=== PATIENT | female | born 1950 | race Caucasian/White ===

== ENCOUNTER 2016-11-07 19:50 | Observation (INO) | payer MEDICARE, OTHER ==
[2016-11-07] MEDS ORDERED: MORPHINE SULFATE 4 MG/ML SYRINGE IV ONE (21:13)
[2016-11-07] MEDS ORDERED: ONDANSETRON 4 MG/2 ML VIAL IVP STA (21:13)
[2016-11-07] MEDS ORDERED: SODIUM CHLORIDE 0.9% 1,000 ML IV ONE (21:13)
--- NOTE | 2016-11-07 21:23 | ED ---
Abdominal Pain HPI - General Chief Complaint: Abdominal Pain Stated Complaint: left flank & back pain/vomiting Time Seen by Provider: 11/07/16 20:58 Source: patient, family Mode of arrival: ambulatory Limitations: no limitations - History of Present Illness Initial Comments: Patient is a 65-year-old female presents to the emergency department for evaluation of nausea, nonbloody nonbilious emesis, epigastric abdominal pain. To the left flank. Patient reports that she woke up this morning and she felt somewhat nauseated and had vague abdominal pain, she attended a democrat and throughout the afternoon developed worsening epigastric abdominal pain radiating to the left side of the abdomen and the left flank. She reports she had multiple episodes of nonbloody nonbilious emesis. She reports that the vomiting has ceased since about 5 PM. She took 2 Motrin which did nothing to improve her pain so she decided to come to the ED for further evaluation. Patient states that her last colonoscopy was in 2008 and she was advised that it was normal and that she needed to follow-up in 10 years. Patient states that she has a history of irritable bowel and initially thought she was just having a flair of her IBS, however symptoms persisted and she became concerned that it was something more serious. Patient also reports that she has a known kidney stone, though she is not sure which side and states that it has never caused her pain before. She does report dysuria and urinary frequency last week, however those symptoms improved without intervention. - Related Data Home Medications Medication Instructions Recorded Confirmed Levothyroxine Sodium [Synthroid] 75 mcg PO DAILY 02/10/16 11/07/16 Allergies Allergy/AdvReac Type Severity Reaction Status Date / Time clarithromycin [From Biaxin] Allergy Unknown Nausea, Verified 11/07/16 22:27 Abdominal pain hydromorphone [From Dilaudid] Allergy Unknown Nausea, Verified 11/07/16 22:27 Abdominal pain adhesive tape AdvReac Unknown Skin Tears. Verified 11/07/16 22:27 Review of Systems ROS Statement: Those systems with pertinent positive or pertinent negative responses have been documented in the HPI. ROS Other: All systems not noted in ROS Statement are negative. Constitutional: Reports: chills. Denies: fever Eyes: Denies: vision change ENT: Denies: throat pain Respiratory: Denies: cough, dyspnea Cardiovascular: Denies: chest pain, palpitations Endocrine: Denies: fatigue Gastrointestinal: Reports: abdominal pain, nausea, vomiting. Denies: diarrhea, constipation Genitourinary: Reports: dysuria. Denies: hematuria Musculoskeletal: Reports: back pain. Denies: arthralgia Skin: Denies: rash, lesions Neurological: Denies: headache, weakness Psychiatric: Denies: anxiety, depression Hematological/Lymphatic: Denies: easy bleeding, easy bruising Past Medical History Past Medical History: Asthma, Cancer, Osteoarthritis (OA), Sleep Apnea/CPAP/ BIPAP, Thyroid Disorder Additional Past Medical History / Comment(s): STRESS INDUCED ASTHMA, C-PAP-DOES NOT USE, LOW THYROID, LEFT BREAST CANCER (LUMPECTOMY,CHEMO & RADIATION 1997), RIGHT BREAST CANCER (2006 WITH DOUBLE MASTECTOMY), HAD MULTIPLE BREAST SURGERIES WITH COMPLICATIONS WITH HYPERBARIC OXYGEN CHAMBER FOR BREAST WOUND THAT BURST HER EAR DRUMS, HX OF BROKEN LEFT SHOULDER & CLAVICLE, HAS SHOULDER PAIN., BACK PAIN. , IRREGULAR BOWEL MOVEMENTS. History of Any Multi-Drug Resistant Organisms: None Reported Past Surgical History: Bladder Surgery, Breast Surgery, Cholecystectomy, Heart Catheterization, Hernia Repair, Hysterectomy Additional Past Surgical History / Comment(s): HERNIA REPAIR (2008,2011) LEFT OVARY & APPY(1982), TUBAL LIGATION (1988), PARTIAL HYST & BLADDER SUSPENSION ( 2002), LEFT BREAST LUMP (1997), CARDIAC CATH (2004), DOUBLE MASTECTOMY(2006), LATISSIMUS FLAP LEFT BREAST , DEHYDROGENATION OPERATOR HEAD REMOVED AND REINSERTED AND REMOVED AGAIN. , DEBRIDMENT LEFT BREAST W/WOUND VAC (01/2008), EAR TUBES (2008) ADN EAR TUBE REMOVED, CLOSURE OF BREAST WOUND AND REMOVAL OF 2 SEROMAS (APR 2008). Past Anesthesia/Blood Transfusion Reactions: Postoperative Nausea & Vomiting ( PONV) Past Psychological History: No Psychological Hx Reported Smoking Status: Former smoker Past Alcohol Use History: None Reported Past Drug Use History: None Reported - Past Family History Mother Family Medical History: No Reported History General Exam Limitations: no limitations General appearance: alert, in no apparent distress Head exam: Present: atraumatic, normocephalic, normal inspection Eye exam: Present: normal appearance, PERRL ENT exam: Present: mucous membranes moist Neck exam: Present: normal inspection Respiratory exam: Present: normal lung sounds bilaterally. Absent: respiratory distress, wheezes, rales, rhonchi, stridor Cardiovascular Exam: Present: regular rate, normal rhythm, normal heart sounds. Absent: systolic murmur, diastolic murmur, rubs, gallop, clicks GI/Abdominal exam: Present: soft, tenderness (Tenderness in epigastrum), normal bowel sounds. Absent: guarding, rebound, rigid Rectal exam: Present: deferred Extremities exam: Present: normal inspection, full ROM, normal capillary refill. Absent: tenderness, pedal edema, joint swelling, calf tenderness Back exam: Present: other (Well-healed scar on the left flank secondary to latissimus dorsi harvesting for reconstructive breast surgery). Absent: CVA tenderness (R), CVA tenderness (L), paraspinal tenderness Neurological exam: Present: alert, oriented X3, CN II-XII intact Psychiatric exam: Present: normal affect, normal mood Skin exam: Present: warm, dry, intact, normal color. Absent: rash Course Vital Signs 11/07/16 11/07/16 11/07/16 20:05 21:50 23:00 Temperature 97.3 F L Pulse Rate 58 L 87 63 Respiratory 18 16 18 Rate Blood Pressure 220/99 132/74 131/67 O2 Sat by Pulse 96 98 Oximetry Medical Decision Making - Medical Decision Making Patient was seen and evaluated, vital signs were reviewed History is obtained from the patient and her daughter at bedside Considering the patient is having left sided abdominal and flank pain is a 65- year-old female, will obtain a full abdominal workup as well as workup for cardiac cause of the discomfort Morphine ordered for pain management Urinalysis reveals possible UTI with gross hematuria CT renal stone ordered Rocephin order for urinary tract infection Labs reveal leukocytosis, mildly elevated troponin Aspirin ordered for mildly elevated troponin Results were discussed with the patient, advised the patient I feel she needs to be admitted at this time for further evaluation and serial troponins Patient is agreeable Admission orders placed - Lab Data Result diagrams: 11/07/16 21:35 11/07/16 21:35 Lab Results 11/07/16 11/07/16 11/07/16 Range/Units 21:35 21:35 21:35 WBC 12.6 H (3.8-10.6) k/uL RBC 5.00 (3.80-5.40) m/uL Hgb 15.0 (11.4-16.0) gm/dL Hct 45.9 (34.0-46.0) % MCV 91.7 (80.0-100.0) fL MCH 30.1 (25.0-35.0) pg MCHC 32.8 (31.0-37.0) g/dL RDW 12.8 (11.5-15.5) % Plt Count 232 (150-450) k/uL Neutrophils % 92 % Lymphocytes % 6 % Monocytes % 1 % Eosinophils % 1 % Basophils % 0 % Neutrophils # 11.5 H (1.3-7.7) k/uL Lymphocytes # 0.8 L (1.0-4.8) k/uL Monocytes # 0.1 (0-1.0) k/uL Eosinophils # 0.1 (0-0.7) k/uL Basophils # 0.0 (0-0.2) k/uL PT (9.0-12.0) sec INR (<1.2) APTT (22.0-30.0) sec Sodium 144 (137-145) mmol/L Potassium 4.3 (3.5-5.1) mmol/L Chloride 107 (98-107) mmol/L Carbon Dioxide 26 (22-30) mmol/L Anion Gap 11 mmol/L BUN 17 (7-17) mg/dL Creatinine 0.90 (0.52-1.04) mg/dL Est GFR (MDRD) Af Amer >60 (>60 ml/min/1.73 sqM) Est GFR (MDRD) Non-Af >60 (>60 ml/min/1.73 sqM) Glucose 126 H (74-99) mg/dL Calcium 9.2 (8.4-10.2) mg/dL Magnesium 2.0 (1.6-2.3) mg/dL Total Bilirubin 0.5 (0.2-1.3) mg/dL AST 23 (14-36) U/L ALT 36 (9-52) U/L Alkaline Phosphatase 86 (38-126) U/L Troponin I (0.000-0.034) ng/mL NT-Pro-B Natriuret Pep 519 pg/mL Total Protein 7.4 (6.3-8.2) g/dL Albumin 4.5 (3.5-5.0) g/dL Lipase 35 (23-300) U/L Urine Color Urine Appearance (Clear) Urine pH (5.0-8.0) Ur Specific [place] (1.001-1.035) Urine Protein (Negative) Urine Glucose (UA) (Negative) Urine Ketones (Negative) Urine Blood (Negative) Urine Nitrite (Negative) Urine Bilirubin (Negative) Urine Urobilinogen (<2.0) mg/dL Ur Leukocyte Esterase (Negative) Urine RBC (0-5) /hpf Urine WBC (0-5) /hpf Ur Squamous Epith Cells (0-4) /hpf Calcium Oxalate Crystal (None) /hpf Hyaline Casts (0-2) /lpf Urine Mucus (None) /hpf 11/07/16 11/07/16 11/07/16 Range/Units 21:35 21:35 21:45 WBC (3.8-10.6) k/uL RBC (3.80-5.40) m/uL Hgb (11.4-16.0) gm/dL Hct (34.0-46.0) % MCV (80.0-100.0) fL MCH (25.0-35.0) pg MCHC (31.0-37.0) g/dL RDW (11.5-15.5) % Plt Count (150-450) k/uL Neutrophils % % Lymphocytes % % Monocytes % % Eosinophils % % Basophils % % Neutrophils # (1.3-7.7) k/uL Lymphocytes # (1.0-4.8) k/uL Monocytes # (0-1.0) k/uL Eosinophils # (0-0.7) k/uL Basophils # (0-0.2) k/uL PT 10.3 (9.0-12.0) sec INR 1.0 (<1.2) APTT 26.0 (22.0-30.0) sec Sodium (137-145) mmol/L Potassium (3.5-5.1) mmol/L Chloride (98-107) mmol/L Carbon Dioxide (22-30) mmol/L Anion Gap mmol/L BUN (7-17) mg/dL Creatinine (0.52-1.04) mg/dL Est GFR (MDRD) Af Amer (>60 ml/min/1.73 sqM) Est GFR (MDRD) Non-Af (>60 ml/min/1.73 sqM) Glucose (74-99) mg/dL Calcium (8.4-10.2) mg/dL Magnesium (1.6-2.3) mg/dL Total Bilirubin (0.2-1.3) mg/dL AST (14-36) U/L ALT (9-52) U/L Alkaline Phosphatase (38-126) U/L Troponin I 0.038 H* (0.000-0.034) ng/mL NT-Pro-B Natriuret Pep pg/mL Total Protein (6.3-8.2) g/dL Albumin (3.5-5.0) g/dL Lipase (23-300) U/L Urine Color Yellow Urine Appearance Cloudy H (Clear) Urine pH 6.0 (5.0-8.0) Ur Specific [place] 1.016 (1.001-1.035) Urine Protein 1+ H (Negative) Urine Glucose (UA) 1+ H (Negative) Urine Ketones 1+ H (Negative) Urine Blood Large H (Negative) Urine Nitrite Negative (Negative) Urine Bilirubin Negative (Negative) Urine Urobilinogen <2.0 (<2.0) mg/dL Ur Leukocyte Esterase Trace H (Negative) Urine RBC >182 H (0-5) /hpf Urine WBC 26 H (0-5) /hpf Ur Squamous Epith Cells <1 (0-4) /hpf Calcium Oxalate Crystal Occasional H (None) /hpf Hyaline Casts 5 H (0-2) /lpf Urine Mucus Few H (None) /hpf - EKG Data -: EKG Interpreted by Id EKG shows normal: sinus rhythm Rate: normal EKG rate 71, normal sinus rhythm, first-degree AV block, NC is 218 QRS 98, QTc 467 steely elevations or depressions no evidence of acute ischemia or infarction 11/08/16 00:39 Disposition Clinical Impression: Elevated troponin, Pyelonephritis Disposition: ADMITTED IP TO THIS [facility] Condition: Good Referrals: Celio Glass MD [Primary Care Provider] - 1-2 days Time of Disposition: 00:37
[2016-11-07 21:47] LABS: Basophils % (A) 0 %; CH 29.4; CHCM 32.3; Eosinophils # (A) 0.1 k/uL (0-0.7); Eosinophils % (A) 1 %; HCT 45.9 % (34.0-46.0); HDW 2.42; Luc # (Auto) 0.05; Luc % (Auto) 0; Lymphocytes # (A) 0.8 k/uL (1.0-4.8); Lymphocytes % (A) 6 %; MCH 30.1 pg (25.0-35.0); MCHC 32.8 g/dL (31.0-37.0); MCV 91.7 fL (80.0-100.0); Mean Platelet Volume 7.2; Monocytes # (A) 0.1 k/uL (0-1.0); Monocytes % (A) 1 %; Neutrophils # (A) 11.5 k/uL (1.3-7.7); Neutrophils % (A) 92 %; RDW 12.8 % (11.5-15.5); WBC 12.6 k/uL (3.8-10.6); WBC (Perox) 11.81
[2016-11-07 21:57] LABS: ALT 36 U/L (9-52); AST 23 U/L (14-36); Alkaline Phosphatase 86 U/L (38-126); Anion Gap 11 mmol/L; Blood Urea Nitrogen 17 mg/dL (7-17); Calcium 9.2 mg/dL (8.4-10.2); Carbon Dioxide 26 mmol/L (22-30); Chloride 107 mmol/L (98-107); Glucose 126 mg/dL (74-99); Non-African American GFR(MDRD) >60 (>60 ml/min/1.73 sqM); Potassium 4.3 mmol/L (3.5-5.1); Prothrombin Time 10.3 sec (9.0-12.0); Sodium 144 mmol/L (137-145); Total Bilirubin 0.5 mg/dL (0.2-1.3); Total Protein 7.4 g/dL (6.3-8.2)
--- NOTE | 2016-11-07 22:06 | XR ---
EXAMINATION TYPE: XR chest 2V DATE OF EXAM: 11/07/2016 COMPARISON: NONE HISTORY: Abdominal pain TECHNIQUE: Frontal and lateral views of the chest are obtained. FINDINGS: There is no heart failure nor confluent pneumonic infiltrate. There is slight coarsening o f interstitial markings. Thoracic aorta is atheromatous. There is mild spurring in the thoracic spine . There is anterior wedging of one or 2 thoracic vertebra. There is osteopenia. IMPRESSION: Mild pulmonary fibrosis. No active cardiopulmonary disease. Thoracic scoliotic deformity . T8 50% compression fracture.
[2016-11-07 22:16] LABS: Appearance,Urine Cloudy (Clear); Bilirubin,Urine Negative (Negative); Calcium Oxalate Crystals,Urine Occasional /hpf; Glucose,Urine (UA) 1+ (Negative); Ketones,Urine 1+ (Negative); Leukocyte Esterase,Urine Trace (Negative); Mucus,Urine Few /hpf; Nitrite,Urine Negative (Negative); Particle Count 5131; Protein,Urine 1+ (Negative); RBC,Urine >182 /hpf (0-5); Specific Gravity,Urine 1.016 (1.001-1.035); Squamous Epithelial Cell,Urine <1 /hpf (0-4); UA Billing (MACRO vs. MICRO) MICRO; Urobilinogen,Urine <2.0 mg/dL (<2.0); WBC,Urine 26 /hpf (0-5)
--- NOTE | 2016-11-07 23:26 | CT ---
EXAM: CT Abdomen and Pelvis Without Intravenous Contrast, Renal Stone Protocol CLINICAL HISTORY: Reason: Pain TECHNIQUE: Axial computed tomography images of the abdomen and pelvis without intravenous contrast using renal stone protocol. CTDI is 13.60 mGy and DLP is 609.50 mGy-cm. This CT exam was performed using one or more of the following dose reduction techniques: automated exposure control, adjustment of the mA and/or kV according to patient size, and/or use of iterative reconstruction technique. COMPARISON: No relevant prior studies available. FINDINGS: Lower thorax: Unremarkable as visualized. ABDOMEN: Liver: Unremarkable. Gallbladder and bile ducts: Prior cholecystectomy. No ductal dilation. Pancreas: Unremarkable. No ductal dilation. Spleen: Unremarkable. No splenomegaly. Adrenals: Unremarkable. No mass. Right kidney and ureter: Unremarkable. No obstructing stones. No hydronephrosis. Left kidney and ureter: Stranding about the left kidney along with mild left hydroureteronephrosis without distal radiopaque obstructing calculus. Further clinical correlation and workup may be necessary. Stomach and bowel: Unremarkable. No obstruction. No mucosal thickening. Appendix: No findings to suggest acute appendicitis. PELVIS: Bladder: Unremarkable. No stones. Reproductive: Unremarkable as visualized. ABDOMEN and PELVIS: Intraperitoneal space: Unremarkable. No free air. No significant fluid collection. Bones/joints: Rightward curvature of the thoracolumbar spine. Multilevel spine degenerative changes. No suspicious lytic or sclerotic lesions of bone. No acute fracture. No dislocation. Soft tissues: Unremarkable. Vasculature: Unremarkable. No abdominal aortic aneurysm. Lymph nodes: Unremarkable. No enlarged lymph nodes. IMPRESSION: Stranding about the left kidney along with mild left hydroureteronephrosis without distal radiopaque obstructing calculus. This appearance can be seen with a recently passed calculus or a non- radiopaque obstructing process. Correlate clinically to exclude superimposed infectious process. Clinical correlation and further workup may be necessary.
[2016-11-08] MEDS ORDERED: ASPIRIN 81 MG PO STA (00:05)
[2016-11-08] MEDS ORDERED: NALOXONE 0.4 MG/ML 1 ML VIAL IV PRN (00:33)
[2016-11-08] MEDS ORDERED: SODIUM CHLORIDE 0.9% 1,000 ML IV SCH (00:45)
[2016-11-08] MEDS ORDERED: ONDANSETRON 4 MG/2 ML VIAL IVP PRN (01:10)
[2016-11-08 01:44] VITALS: BMI 24.3
[2016-11-08] MEDS ORDERED: LEVOTHYROXINE 75 MCG TAB PO SCH (11:00)
[2016-11-08 11:42] VITALS: RESP 16
--- NOTE | 2016-11-08 11:55 | ECHOF ---
Referral Reason:elevated troponin MEASUREMENTS -------- HEIGHT: 170.2 cm WEIGHT: 85.7 kg BP: IVSd: 1.1 cm (0.6 - 1.1) LVIDd: 3.9 cm (3.9 - 5.3) LVPWd: 1.0 cm (0.6 - 1.1) IVSs: 1.7 cm LVIDs: 2.8 cm LVPWs: 1.2 cm Ao Diam: 3.3 cm (2.0 - 3.7) AV Cusp: 2.1 cm (1.5 - 2.6) LA Diam: 3.4 cm (2.7 - 3.8) MV EXCURSION: 11.106 mm (> 18.000) MV EF SLOPE: 69 mm/s (70 - 150) EPSS: 0.7 cm MV E [place]: 0.81 m/s MV DecT: 217 ms MV A [place]: 0.40 m/s MV E/A Ratio: 2.02 AR PHT: 640 ms RAP: 5.00 mmHg RVSP: 16.77 mmHg FINDINGS -------- Sinus rhythm. This was a technically adequate study. Pt had mastectomy The left ventricular size is normal. Left ventricular wall thickness is normal. Overall left ventricular systolic function is normal with, an EF between 55 - 60 %. The right ventricle is normal in size and function. The left atrium is normal in size. The right atrium is normal in size. The aortic valve is trileaflet, and appears structurally normal. No aortic stenosis or regurgitation. Trace to mild aortic regurgitation. The mitral valve is normal. There is trace to mild mitral regurgitation. Trace tricuspid regurgitation present. The right ventricular systolic pressure, as measured by Doppler, is 16.77mmHg. There is no pulmonic regurgitation present. The aortic root size is normal. There is no pericardial effusion. CONCLUSIONS -------- 1. Sinus rhythm. 2. Trace tricuspid regurgitation present. 3. There is no pulmonic regurgitation present. 4. The aortic root size is normal. 5. There is no pericardial effusion. 6. This was a technically adequate study. 7. Pt had mastectomy 8. Left ventricular wall thickness is normal. 9. Overall left ventricular systolic function is normal with, an EF between 55 - 60 %. 10. The left atrium is normal in size. 11. The aortic valve is trileaflet, and appears structurally normal. No aortic stenosis or regurgitation. 12. Trace to mild aortic regurgitation. 13. There is trace to mild mitral regurgitation. ROPE COILING MACHINE OPERATOR: Marely Luna RDCS
[2016-11-08] MEDS ORDERED: HEPARIN SODIUM,PORCINE 5,000 UNIT/ML 1 ML VIAL SQ SCH (13:00)
--- NOTE | 2016-11-08 13:59 | P.CRDCN ---
History of Present Illness Consult date: 11/08/16 Reason for Consult (text): elevated troponin Chief complaint: left flank and abdominal pain with nausea and vomiting History of present illness: A pleasant 66-year-old female patient who presented to the emergency department with complaints of left flank and abdominal pain with nausea and vomiting. Patient has a history of IBS, LUCY, does not wear CPAP, unremarkable cardiac catheterization in [address] patient[address] Renal CT showed stranding about the left kidney along with mild left hydroureternephrosis. Chest x-ray showed mild pulmonary fibrosis with thoracic scoliotic deformity and a T8 50% compression fracture. EKG shows sinus rhythm without acute ST-T wave abnormalities. Cardiology was asked to see the patient in consult due to mildly elevated troponins which came back to be 0.038, 0.050 and 0.036. Patient denies complaints of chest discomfort, palpitations, shortness of breath or edema. No prior history of cardiac issues, no family history of heart disease. Past Medical History Past Medical History: Asthma, Cancer, Osteoarthritis (OA), Sleep Apnea/CPAP/ BIPAP, Thyroid Disorder Additional Past Medical History / Comment(s): STRESS INDUCED ASTHMA, C-PAP-DOES NOT USE, LOW THYROID, LEFT BREAST CANCER (LUMPECTOMY,CHEMO & RADIATION 1997), RIGHT BREAST CANCER (2006 WITH DOUBLE MASTECTOMY), HAD MULTIPLE BREAST SURGERIES WITH COMPLICATIONS WITH HYPERBARIC OXYGEN CHAMBER FOR BREAST WOUND THAT BURST HER EAR DRUMS, HX OF BROKEN LEFT SHOULDER & CLAVICLE, HAS SHOULDER PAIN., BACK PAIN. , IRREGULAR BOWEL MOVEMENTS. History of Any Multi-Drug Resistant Organisms: None Reported Past Surgical History: Bladder Surgery, Breast Surgery, Cholecystectomy, Heart Catheterization, Hernia Repair, Hysterectomy Additional Past Surgical History / Comment(s): HERNIA REPAIR (2008,2011) LEFT OVARY & APPY(1982), TUBAL LIGATION (1988), PARTIAL HYST & BLADDER SUSPENSION ( 2002), LEFT BREAST LUMP (1997), CARDIAC CATH (2004), DOUBLE MASTECTOMY(2006), LATISSIMUS FLAP LEFT BREAST , SKIP LOADER REMOVED AND REINSERTED AND REMOVED AGAIN. , DEBRIDMENT LEFT BREAST W/WOUND VAC (01/2008), EAR TUBES (2008) ADN EAR TUBE REMOVED, CLOSURE OF BREAST WOUND AND REMOVAL OF 2 SEROMAS (APR 2008). Past Anesthesia/Blood Transfusion Reactions: Postoperative Nausea & Vomiting ( PONV) Past Psychological History: No Psychological Hx Reported Smoking Status: Former smoker Past Alcohol Use History: None Reported Past Drug Use History: None Reported - Past Family History Mother Family Medical History: No Reported History Medications and Allergies Home Medications Medication Instructions Recorded Confirmed Type Levothyroxine Sodium [Synthroid] 75 mcg PO DAILY 02/10/16 11/07/16 History Allergies Allergy/AdvReac Type Severity Reaction Status Date / Time clarithromycin [From Biaxin] Allergy Unknown Nausea, Verified 11/07/16 22:27 Abdominal pain hydromorphone [From Dilaudid] Allergy Unknown Nausea, Verified 11/07/16 22:27 Abdominal pain adhesive tape AdvReac Unknown Skin Tears. Verified 11/07/16 22:27 Physical Exam Vitals: Vital Signs Temp Pulse Pulse Resp BP BP Pulse Ox 11/08/16 11:41 97.3 F L 62 16 114/71 96 11/08/16 08:00 97.6 F 63 20 111/66 95 11/08/16 04:00 60 18 111/63 95 11/08/16 01:30 97.1 F L 60 18 147/76 96 11/08/16 01:26 97.1 F L 60 18 147/76 96 11/08/16 01:12 54 L 16 137/77 95 11/07/16 23:00 63 18 131/67 98 11/07/16 21:50 87 16 132/74 11/07/16 20:05 97.3 F L 58 L 18 220/99 96 Intake and Output 11/07/16 11/08/16 11/08/16 22:59 06:59 14:59 Intake Total 375 120 Output Total 300 Balance 75 120 Intake: IV 375 Sodium Chloride 0.9% 1, 375 000 ml @ 75 mls/hr IV . [id number] Rx#:[id number] Oral 120 Output: Urine 300 Other: Weight 70.307 kg 86.1 kg PHYSICAL EXAMINATION: HEENT: Head is atraumatic, normocephalic. Pupils equal, round. Neck is supple. There is no elevated jugular venous pressure. HEART EXAMINATION: Heart sounds regular, S1 and S2 normal. No murmur or gallop heard. CHEST EXAMINATION: Lungs are clear to auscultation and precussion. No chest wall tenderness is noted on palpation or with deep breathing. ABDOMEN: Soft, nontender. Bowel sounds are heard. No organomegaly noted. EXTREMITIES: 2+ peripheral pulses with no evidence of peripheral edema and no calf tenderness noted. NEUROLOGIC patient is awake, alert and oriented x3. . Results 11/07/16 21:35 11/07/16 21:35 Cardiac Enzymes 11/07/16 11/07/16 11/08/16 Range/Units 21:35 21:35 04:41 AST 23 (14-36) U/L Troponin I 0.038 H* 0.050 H* (0.000-0.034) ng/mL 11/08/16 Range/Units 08:49 AST (14-36) U/L Troponin I 0.036 H* (0.000-0.034) ng/mL Coagulation 11/07/16 Range/Units 21:35 PT 10.3 (9.0-12.0) sec APTT 26.0 (22.0-30.0) sec CBC 11/07/16 Range/Units 21:35 WBC 12.6 H (3.8-10.6) k/uL RBC 5.00 (3.80-5.40) m/uL Hgb 15.0 (11.4-16.0) gm/dL Hct 45.9 (34.0-46.0) % Plt Count 232 (150-450) k/uL Comprehensive Metabolic Panel 11/07/16 Range/Units 21:35 Sodium 144 (137-145) mmol/L Potassium 4.3 (3.5-5.1) mmol/L Chloride 107 (98-107) mmol/L Carbon Dioxide 26 (22-30) mmol/L BUN 17 (7-17) mg/dL Creatinine 0.90 (0.52-1.04) mg/dL Glucose 126 H (74-99) mg/dL Calcium 9.2 (8.4-10.2) mg/dL AST 23 (14-36) U/L ALT 36 (9-52) U/L Alkaline Phosphatase 86 (38-126) U/L Total Protein 7.4 (6.3-8.2) g/dL Albumin 4.5 (3.5-5.0) g/dL Current Medications Generic Name Dose Route Start Last Admin Trade Name Freq PRN Reason Stop Dose Admin Heparin Sodium (Porcine) 5,000 unit 11/08/16 13:00 Heparin SQ Q12HR RENEE Sodium Chloride 1,000 mls @ 75 mls/hr 11/08/16 00:45 11/08/16 01:02 Saline 0.9% IV 75 mls/hr .[id number] RENEE Administration Levothyroxine Sodium 75 mcg 11/08/16 11:00 11/08/16 11:13 Synthroid PO 75 mcg DAILY@0630 RENEE Administration Naloxone HCl 0.2 mg 11/08/16 00:33 Narcan IV Q2M PRN Opioid Reversal Ondansetron HCl 4 mg 11/08/16 01:10 Zofran IVP Q6HR PRN Nausea And Vomiting Intake and Output 11/07/16 11/08/16 11/08/16 22:59 06:59 14:59 Intake Total 375 120 Output Total 300 Balance 75 120 Intake: IV 375 Sodium Chloride 0.9% 1, 375 000 ml @ 75 mls/hr IV . [id number] RENEE Rx#:[id number] Oral 120 Output: Urine 300 Other: Weight 70.307 kg 86.1 kg 11/07/16 21:35 11/07/16 21:35 EKG Interpretations (text) Sinus rhythm with no acute ST-T wave abnormalities Assessment and Plan Plan: Assessment and plan #1 hydroureternephrosis #2 symptoms of flank and abdominal pain with nausea and vomiting #3 mild troponin leak, not reflective of myocardial injury and per the patient unremarkable cardiac catheterization in 2008 From cardiology 's perspective, we obtained a 2-D echo with Doppler that showed a normal LV systolic function with an ejection fraction of 55-60%. Consult urology for hydroureteronephrosis. Subcu heparin for DVT prophylaxis. We'll follow the patient on an as-needed basis. Please do not hesitate to contact us with questions. KETTLE CHIPPER note has been reviewed, I agree with a documented findings and plan of care. Patient was seen and examined.
--- NOTE | 2016-11-08 15:22 | P.HPIM ---
History of Present Illness 69-year-old pleasant female came in with complaints of left flank pain radiating to the left groin area sharp in nature 7/10 in severity along with nausea which completely resolved at this point of time patient's CT of the abdomen did show some hydronephrosis along with nonobstructive calculi. Her abdominal pain completely resolved at this point of time. Patient denied any fever or chills, patient did have minimal leukocytosis patient had nausea yesterday. Urine did show minimal WBC count highly elevated RBC secondary to nephrolithiasis or hematuria. Patient is found to have minimally elevated troponins, cardiac evaluated for that reason and patient didn't have any chest pain. She does not have any significant new EKG changes and patient had no no history of coronary artery disease in the past and troponins are not high enoug for acute myocardial infarction. Patient was cleared from cardiology perspective. He is clinically doing well and I do not believe patient has urinary tract infection patient received ceftriaxone yesterday that will be discontinued and patient was discharged today with follow-up with urology as well as primary care physician. Denied any dysuria or increased urinary frequency. Patient is also found to have old compression fracture on the CAT scan of the abdomen. Review of Systems REVIEW OF SYSTEMS: CONSTITUTIONAL: No fever, no malaise, no fatigue. HEENT: No recent visual problems or hearing problems. Denied any sore throat. CARDIOVASCULAR: No chest pain, orthopnea, PND, no palpitations, no syncope. PULMONARY: No shortness of breath, no cough, no hemoptysis. GASTROINTESTINAL: No diarrhea, no nausea, no vomiting, no abdominal pain. Normoactive bowel sounds. NEUROLOGICAL: No headaches, no weakness, no numbness. HEMATOLOGICAL: Denies any bleeding or petechiae. GENITOURINARY: As mentioned in HPI MUSCULOSKELETAL/RHEUMATOLOGICAL: Denies any joint pain, swelling, or any muscle pain. ENDOCRINE: Denies any polyuria or polydipsia. The rest of the 14-point review of systems is negative. Past Medical History Past Medical History: Asthma, Cancer, Osteoarthritis (OA), Sleep Apnea/CPAP/ BIPAP, Thyroid Disorder Additional Past Medical History / Comment(s): STRESS INDUCED ASTHMA, C-PAP-DOES NOT USE, LOW THYROID, LEFT BREAST CANCER (LUMPECTOMY,CHEMO & RADIATION 1997), RIGHT BREAST CANCER (2006 WITH DOUBLE MASTECTOMY), HAD MULTIPLE BREAST SURGERIES WITH COMPLICATIONS WITH HYPERBARIC OXYGEN CHAMBER FOR BREAST WOUND THAT BURST HER EAR DRUMS, HX OF BROKEN LEFT SHOULDER & CLAVICLE, HAS SHOULDER PAIN., BACK PAIN. , IRREGULAR BOWEL MOVEMENTS. History of Any Multi-Drug Resistant Organisms: None Reported Past Surgical History: Bladder Surgery, Breast Surgery, Cholecystectomy, Heart Catheterization, Hernia Repair, Hysterectomy Additional Past Surgical History / Comment(s): HERNIA REPAIR (2008,2011) LEFT OVARY & APPY(1982), TUBAL LIGATION (1988), PARTIAL HYST & BLADDER SUSPENSION ( 2002), LEFT BREAST LUMP (1997), CARDIAC CATH (2004), DOUBLE MASTECTOMY(2006), LATISSIMUS FLAP LEFT BREAST , IT APPLICATION ADMINISTRATOR REMOVED AND REINSERTED AND REMOVED AGAIN. , DEBRIDMENT LEFT BREAST W/WOUND VAC (01/2008), EAR TUBES (2008) ADN EAR TUBE REMOVED, CLOSURE OF BREAST WOUND AND REMOVAL OF 2 SEROMAS (APR 2008). Past Anesthesia/Blood Transfusion Reactions: Postoperative Nausea & Vomiting ( PONV) Past Psychological History: No Psychological Hx Reported Smoking Status: Former smoker Past Alcohol Use History: None Reported Past Drug Use History: None Reported - Past Family History Mother Family Medical History: No Reported History Medications and Allergies Home Medications Medication Instructions Recorded Confirmed Type Levothyroxine Sodium [Synthroid] 75 mcg PO DAILY 02/10/16 11/07/16 History Allergies Allergy/AdvReac Type Severity Reaction Status Date / Time clarithromycin [From Biaxin] Allergy Unknown Nausea, Verified 11/07/16 22:27 Abdominal pain hydromorphone [From Dilaudid] Allergy Unknown Nausea, Verified 11/07/16 22:27 Abdominal pain adhesive tape AdvReac Unknown Skin Tears. Verified 11/07/16 22:27 Physical Exam Vitals: Vital Signs Temp Pulse Pulse Resp BP BP Pulse Ox 11/08/16 11:41 97.3 F L 62 16 114/71 96 11/08/16 08:00 97.6 F 63 20 111/66 95 11/08/16 04:00 60 18 111/63 95 11/08/16 01:30 97.1 F L 60 18 147/76 96 11/08/16 01:26 97.1 F L 60 18 147/76 96 11/08/16 01:12 54 L 16 137/77 95 11/07/16 23:00 63 18 131/67 98 11/07/16 21:50 87 16 132/74 11/07/16 20:05 97.3 F L 58 L 18 220/99 96 Intake and Output 11/08/16 11/08/16 11/08/16 06:59 14:59 22:59 Intake Total 375 120 Output Total 300 Balance 75 120 Intake: IV 375 Sodium Chloride 0.9% 1, 375 000 ml @ 75 mls/hr IV . [id number] RENEE Rx#:[id number] Oral 120 Output: Urine 300 Other: # Voids 2 Weight 86.1 kg PHYSICAL EXAMINATION: GENERAL: The patient is alert and oriented x3, not in any acute distress. Well developed, well nourished. HEENT: Pupils are round and equally reacting to light. EOMI. No scleral icterus. No conjunctival pallor. Normocephalic, atraumatic. No pharyngeal erythema. No thyromegaly. CARDIOVASCULAR: S1 and S2 present. No murmurs, rubs, or gallops. PULMONARY: Chest is clear to auscultation, no wheezing or crackles. ABDOMEN: Soft, nontender, nondistended, normoactive bowel sounds. No palpable organomegaly. MUSCULOSKELETAL: No joint swelling or deformity. EXTREMITIES: No cyanosis, clubbing, or pedal edema. NEUROLOGICAL: Gross neurological examination did not reveal any focal deficits. SKIN: No rashes. Results CBC & Chem 7: 11/07/16 21:35 11/07/16 21:35 Labs: Abnormal Lab Results - Last 24 Hours (Table) 11/07/16 11/07/16 11/07/16 Range/Units 21:35 21:35 21:35 WBC 12.6 H (3.8-10.6) k/uL Neutrophils # 11.5 H (1.3-7.7) k/uL Lymphocytes # 0.8 L (1.0-4.8) k/uL Glucose 126 H (74-99) mg/dL Troponin I 0.038 H* (0.000-0.034) ng/mL Urine Appearance (Clear) Urine Protein (Negative) Urine Glucose (UA) (Negative) Urine Ketones (Negative) Urine Blood (Negative) Ur Leukocyte Esterase (Negative) Urine RBC (0-5) /hpf Urine WBC (0-5) /hpf Calcium Oxalate Crystal (None) /hpf Hyaline Casts (0-2) /lpf Urine Mucus (None) /hpf 11/07/16 11/08/16 11/08/16 Range/Units 21:45 04:41 08:49 WBC (3.8-10.6) k/uL Neutrophils # (1.3-7.7) k/uL Lymphocytes # (1.0-4.8) k/uL Glucose (74-99) mg/dL Troponin I 0.050 H* 0.036 H* (0.000-0.034) ng/mL Urine Appearance Cloudy H (Clear) Urine Protein 1+ H (Negative) Urine Glucose (UA) 1+ H (Negative) Urine Ketones 1+ H (Negative) Urine Blood Large H (Negative) Ur Leukocyte Esterase Trace H (Negative) Urine RBC >182 H (0-5) /hpf Urine WBC 26 H (0-5) /hpf Calcium Oxalate Crystal Occasional H (None) /hpf Hyaline Casts 5 H (0-2) /lpf Urine Mucus Few H (None) /hpf Thrombosis Risk Factor Assmnt - Choose All That Apply Any of the Below Risk Factors Present?: No Other Risk Factors: Yes Each Risk Factor Represents 2 Points: Age 61-74 years Other congenital or acquired thrombophilia - If yes, enter type in comment: No Thrombosis Risk Factor Assessment Total Risk Factor Score: 2 Thrombosis Risk Factor Assessment Level: Low Risk Assessment and Plan Plan: 1 left-sided flank pain secondary to hydronephrosis and later nephrolithiasis patient's symptoms resolved completely at this point of time patient may have passed a stone yet I do not believe patient has urinary tract infection. Patient will not be discharged on any antibiotics patient will be discharged today to follow up with urology as mentioned above. 2 mild elevation of troponins: Nonspecific elevation without any symptoms of chest pain. Patient's echocardiogram showed normal LV function. 3 hypothyroidism: Continue with levothyroxine. #4 breast cancer: In remission.
[2016-11-08 15:39] VITALS: BP 120/67; PULSE 55; TEMP 98.2
--- NOTE | 2016-11-08 15:43 | P.DS ---
Providers Date of admission: 11/08/16 00:33 Attending physician: Munir Elder Consults: 11/08/16 07:07 Consult Physician Routine Consulting Provider: Tl Cabral Consult Reason/Comments: Elevated Trop Do you want consulting provider notified?: Yes, Notify in am Primary care physician: Celio Zapata [facility] Course: Please refer to HPI Patient Condition at Discharge: Good Plan - Discharge Summary New Discharge Prescriptions: No Action Levothyroxine Sodium [Synthroid] 75 mcg PO DAILY Discharge Medication List Levothyroxine Sodium [Synthroid] 75 mcg PO DAILY 02/10/16 [History] Follow up Appointment(s)/Referral(s): Celio Glass MD [Primary Care Provider] - 3 Days Yosi Lynn MD [STAFF PHYSICIAN] - 1 Week Discharge Disposition: HOME SELF-CARE
--- NOTE | 2016-11-08 17:34 | P.GSCN ---
History of Present Illness Consult date: 11/08/16 Reason for Consult: Left-sided hydronephrosis History of present illness: Patient is a pleasant 66-year-old female who developed an abrupt onset of left- sided pain. She developed increasing intermittent pain with nausea and vomiting. She presented emergency room. A CAT scan of the abdomen was performed suspecting a kidney stone. The urine had 186 red cells and 23 white cells. There is high during the process of a mild degree on the left side as well as perinephric stranding. The patient also apparently had some cardiac enzymes including troponins that were mildly elevated. The patient in the history of stones. She had a lot of marked lower urinary tract symptoms consistent with a stone in the distal ureter. The computed tomography scan did not identify any distinct stone there is no other stones. There is no family history stone she has not had a previous stone she does not have history infections there's been no gross hematuria. She has felt well since last night. Review of Systems - Cardiovascular Cardiovascular Comment(s): No chest pain - Gastrointestinal Reports abdominal pain - Genitourinary Genitourinary: Reports flank pain Past Medical History Past Medical History: Asthma, Cancer, Osteoarthritis (OA), Sleep Apnea/CPAP/ BIPAP, Thyroid Disorder Additional Past Medical History / Comment(s): STRESS INDUCED ASTHMA, C-PAP-DOES NOT USE, LOW THYROID, LEFT BREAST CANCER (LUMPECTOMY,CHEMO & RADIATION 1997), RIGHT BREAST CANCER (2006 WITH DOUBLE MASTECTOMY), HAD MULTIPLE BREAST SURGERIES WITH COMPLICATIONS WITH HYPERBARIC OXYGEN CHAMBER FOR BREAST WOUND THAT BURST HER EAR DRUMS, HX OF BROKEN LEFT SHOULDER & CLAVICLE, HAS SHOULDER PAIN., BACK PAIN. , IRREGULAR BOWEL MOVEMENTS. History of Any Multi-Drug Resistant Organisms: None Reported Past Surgical History: Bladder Surgery, Breast Surgery, Cholecystectomy, Heart Catheterization, Hernia Repair, Hysterectomy Additional Past Surgical History / Comment(s): HERNIA REPAIR (2008,2011) LEFT OVARY & APPY(1982), TUBAL LIGATION (1988), PARTIAL HYST & BLADDER SUSPENSION ( 2002), LEFT BREAST LUMP (1997), CARDIAC CATH (2004), DOUBLE MASTECTOMY(2006), LATISSIMUS FLAP LEFT BREAST , SALES AND MARKETING SPECIALIST REMOVED AND REINSERTED AND REMOVED AGAIN. , DEBRIDMENT LEFT BREAST W/WOUND VAC (01/2008), EAR TUBES (2008) ADN EAR TUBE REMOVED, CLOSURE OF BREAST WOUND AND REMOVAL OF 2 SEROMAS (APR 2008). Past Anesthesia/Blood Transfusion Reactions: Postoperative Nausea & Vomiting ( PONV) Past Psychological History: No Psychological Hx Reported Smoking Status: Former smoker Past Alcohol Use History: None Reported Past Drug Use History: None Reported - Past Family History Mother Family Medical History: No Reported History Medications and Allergies Home Medications Medication Instructions Recorded Confirmed Type Levothyroxine Sodium [Synthroid] 75 mcg PO DAILY 02/10/16 11/07/16 History Allergies Allergy/AdvReac Type Severity Reaction Status Date / Time clarithromycin [From Biaxin] Allergy Unknown Nausea, Verified 11/07/16 22:27 Abdominal pain hydromorphone [From Dilaudid] Allergy Unknown Nausea, Verified 11/07/16 22:27 Abdominal pain adhesive tape AdvReac Unknown Skin Tears. Verified 11/07/16 22:27 Surgical - Exam Vital Signs Temp Pulse Resp BP Pulse Ox 97.3 F L 58 L 18 220/99 96 11/07/16 20:05 11/07/16 20:05 11/07/16 20:05 11/07/16 20:05 11/07/16 20:05 - General well developed, well nourished, no distress - Eyes PERRL - ENT no hearing loss - Neck trachea midline - Respiratory normal expansion, normal respiratory effort - Cardiovascular Rhythm: regular - Abdomen Abdomen: soft, non tender - Integumentary no rash - Neurologic normal coordination, normal sensation - Musculoskeletal normal gait, normal posture - Psychiatric oriented to time, oriented to person, oriented to place, speech is normal, memory intact Results - Labs 11/07/16 21:35 11/07/16 21:35 Abnormal Lab Results - Last 24 Hours (Table) 11/07/16 11/07/16 11/07/16 Range/Units 21:35 21:35 21:35 WBC 12.6 H (3.8-10.6) k/uL Neutrophils # 11.5 H (1.3-7.7) k/uL Lymphocytes # 0.8 L (1.0-4.8) k/uL Glucose 126 H (74-99) mg/dL Troponin I 0.038 H* (0.000-0.034) ng/mL Urine Appearance (Clear) Urine Protein (Negative) Urine Glucose (UA) (Negative) Urine Ketones (Negative) Urine Blood (Negative) Ur Leukocyte Esterase (Negative) Urine RBC (0-5) /hpf Urine WBC (0-5) /hpf Calcium Oxalate Crystal (None) /hpf Hyaline Casts (0-2) /lpf Urine Mucus (None) /hpf 11/07/16 11/08/16 11/08/16 Range/Units 21:45 04:41 08:49 WBC (3.8-10.6) k/uL Neutrophils # (1.3-7.7) k/uL Lymphocytes # (1.0-4.8) k/uL Glucose (74-99) mg/dL Troponin I 0.050 H* 0.036 H* (0.000-0.034) ng/mL Urine Appearance Cloudy H (Clear) Urine Protein 1+ H (Negative) Urine Glucose (UA) 1+ H (Negative) Urine Ketones 1+ H (Negative) Urine Blood Large H (Negative) Ur Leukocyte Esterase Trace H (Negative) Urine RBC >182 H (0-5) /hpf Urine WBC 26 H (0-5) /hpf Calcium Oxalate Crystal Occasional H (None) /hpf Hyaline Casts 5 H (0-2) /lpf Urine Mucus Few H (None) /hpf Diabetes panel 11/07/16 Range/Units 21:35 Sodium 144 (137-145) mmol/L Potassium 4.3 (3.5-5.1) mmol/L Chloride 107 (98-107) mmol/L Carbon Dioxide 26 (22-30) mmol/L BUN 17 (7-17) mg/dL Creatinine 0.90 (0.52-1.04) mg/dL Glucose 126 H (74-99) mg/dL Calcium 9.2 (8.4-10.2) mg/dL AST 23 (14-36) U/L ALT 36 (9-52) U/L Alkaline Phosphatase 86 (38-126) U/L Total Protein 7.4 (6.3-8.2) g/dL Albumin 4.5 (3.5-5.0) g/dL Calcium panel 11/07/16 Range/Units 21:35 Calcium 9.2 (8.4-10.2) mg/dL Albumin 4.5 (3.5-5.0) g/dL Pituitary panel 11/07/16 Range/Units 21:35 Sodium 144 (137-145) mmol/L Potassium 4.3 (3.5-5.1) mmol/L Chloride 107 (98-107) mmol/L Carbon Dioxide 26 (22-30) mmol/L BUN 17 (7-17) mg/dL Creatinine 0.90 (0.52-1.04) mg/dL Glucose 126 H (74-99) mg/dL Calcium 9.2 (8.4-10.2) mg/dL Adrenal panel 11/07/16 Range/Units 21:35 Sodium 144 (137-145) mmol/L Potassium 4.3 (3.5-5.1) mmol/L Chloride 107 (98-107) mmol/L Carbon Dioxide 26 (22-30) mmol/L BUN 17 (7-17) mg/dL Creatinine 0.90 (0.52-1.04) mg/dL Glucose 126 H (74-99) mg/dL Calcium 9.2 (8.4-10.2) mg/dL Total Bilirubin 0.5 (0.2-1.3) mg/dL AST 23 (14-36) U/L ALT 36 (9-52) U/L Alkaline Phosphatase 86 (38-126) U/L Total Protein 7.4 (6.3-8.2) g/dL Albumin 4.5 (3.5-5.0) g/dL Assessment and Plan Plan: Impression: Acute onset of left-sided back and abdominal pain, lower urinary tract symptoms consistent with a left ureteral stone. Urinalysis consistent with a left ureteral stone. Left hydroureteronephrosis consistent with a left ureteral stone. He is treated breast cancer. Recommendations: This patient most likely has passed her stone. I'm no reason for putting her in the hospital. Discussed stones. She does not have any remaining stones. I explained to her that she should have a follow-up urinalysis in about 2 weeks to make sure the blood completely clears from the urine. Be done by myself or Dr. Glass. Should be done regardless of symptoms or not. If she continues to have symptoms however she should contact Dr. Glass or myself.
== END 2016-11-08 17:54 | disposition home or self-care (01) ==
LOC: EC 19:50 → 6SEL 11-08 00:33
PROVIDERS: ADMIT Hospitalist; ATTEND Hospitalist
DX: N13.2 Hydronephrosis with renal and ureteral calculous obstruction (principal); R74.8 Abnormal levels of other serum enzymes; E03.9 Hypothyroidism, unspecified; G47.33 Obstructive sleep apnea (adult) (pediatric); Z79.899 Other long term (current) drug therapy; Z88.5 Allergy status to narcotic agent; Z88.1 Allergy status to other antibiotic agents; Z91.048 Other nonmedicinal substance allergy status; Z85.3 Personal history of malignant neoplasm of breast; Z92.21 Personal history of antineoplastic chemotherapy; Z92.3 Personal history of irradiation; Z87.891 Personal history of nicotine dependence
CPT/HCPCS: 96374; 96375; 99285; 36415; 93005; 93306; 83880; 80053; 83690; 83735; 84484 ×2; 85025; 85610; 85730; 81001; 71020; 74150; G0378; J2270; J2405; J0696

== ENCOUNTER → 2022-12-08 | Outpatient (CLI) | payer MEDICARE, OTHER ==
[2022-12-09 02:13] LABS: HCT 43.5 % (37.2-46.3); HGB 13.8 d/dL (12.0-15.0); MCH 30.2 pg (27.0-32.0); MCHC 31.7 d/dL (32.0-37.0); MCV 95.2 FL (80.0-97.0); Mean Platelet Volume 10.9 FL (9.5-12.2); NRBC Per 100 WBC 0 X 10*3/uL (0.00-0.01); Platelet Count 237 X 10*3/uL (140-440); RBC 4.57 X 10*6/uL (4.10-5.20); RDW 12.3 % (11.5-14.5); WBC 6.45 X 10*3/uL (4.50-10.00)
[2022-12-09 03:30] LABS: Carbon Dioxide 23.9 mmol/L (21.6-31.8); Chloride 106 mmol/L (96-109); Potassium 4.7 mmol/L (3.5-5.5); Sodium 142 mmol/L (135-145)
== END | disposition home or self-care (01) ==
LOC: LABPAT 11:18
PROVIDERS: ATTEND Student in an Organized Health Care Education/Training Program
DX: Z01.812 Encounter for preprocedural laboratory examination (principal)
CPT/HCPCS: 80051; 82565; 84520; 85027

== ENCOUNTER → 2022-12-08 | Outpatient (CLI) | payer MEDICARE, OTHER ==
[2022-12-09 02:51] LABS: ALT 15 U/L (8-44); AST 19 U/L (13-35); LDL Cholesterol,Calculated 67.5 mg/dL (0.0-131.0); VLDL Calculation 14.12 mg/dL (5.00-40.00)
== END | disposition home or self-care (01) ==
LOC: LABWHC1 11:21
PROVIDERS: ATTEND Student in an Organized Health Care Education/Training Program
DX: E78.2 Mixed hyperlipidemia (principal)
CPT/HCPCS: 36415; 80061; 83036; 84450; 84460

== ENCOUNTER 2022-12-15 08:08 | Day surgery (SDC) | payer MEDICARE, OTHER ==
[~2022-12-15 08:08] MED LIST: ALPRAZolam 0.25 MG TAB PO PRN; ALPRAZolam 0.5 MG TAB PO PRN; ASPIRIN 325 MG TAB PO STA; ATORVASTATIN 80 MG TAB PO STA; HEPARIN SODIUM,PORCINE (1 ML) 2,500 UNIT in SODIUM CHLORIDE 0.9% 250 ML IRRIGATION PRN; HEPARIN SODIUM,PORCINE 10,000 UNIT in SODIUM CHLORIDE 0.9% 1,000 ML IRRIGATION PRN; NITROGLYCERIN SL TABS 0.4 MG TAB SUBLINGUAL PRN
[2022-12-15] MEDS: SODIUM CHLORIDE 0.9% 1,000 ML in EMPTY BAG 1 BAG IV SCH ×2 (08:17→17:42)
[2022-12-15] MEDS ORDERED: SODIUM CHLORIDE 0.9% 1,000 ML IV ONE (08:21)
[2022-12-15] MEDS ORDERED: fentaNYL (PF) 50 MCG/ML 2 ML AMP ONE ×2 (09:28→13:28)
[2022-12-15] MEDS ORDERED: MIDAZOLAM 2 MG/2 ML VIAL IVP ONE (09:44)
[2022-12-15] MEDS ORDERED: LIDOCAINE 1% INJ 10MG/ML (5 ML VIAL-PF) SQ ONE (09:45)
[2022-12-15] MEDS ORDERED: fentaNYL (PF) 50 MCG/ML 2 ML AMP IVP ONE (09:45)
[2022-12-15] MEDS ORDERED: VERAPAMIL SYRINGE (5 MG/10 ML) INTRAARTER ONE ×3 (09:48→13:54)
[2022-12-15] MEDS ORDERED: HEPARIN SODIUM 1,000 UN/ML (10ML VL) IV ONE (09:51)
[2022-12-15] MEDS ORDERED: VERAPAMIL 2.5 MG/ML 2 ML AMP ONE ×3 (10:10→13:54)
[2022-12-15] MEDS ORDERED: IOPAMIDOL-370 100ML BTL INJ ONE ×3 (10:21→14:24)
--- NOTE | 2022-12-15 10:50 | P.CARDCATH ---
Date of Procedure: 12/15/22 Description of Procedure: DIAGNOSTIC CORONARY ANGIOGRAPHY and LEFT HEART CATH REPORT PROCEDURES PERFORMED: Left heart catheterization Selective coronary angiography Moderate conscious sedation 26 mins Right radial access INDICATION: Positive nuclear stress test and stable anginal symptoms 72-year-old female who saw me in clinic with symptoms of substernal chest pain, use excess tolerance and shortness of breath with activity. She had a nuclear stress test as an outpatient at [facility] which showed reversible moderate size anterior wall ischemia. For this she was scheduled for heart catheterization. CONSENT: I have discussed the risks, benefits and alternative therapies for the above-mentioned procedure, sedation/analgesia and necessary blood product administration (if indicated, as they pertain to this patient). The patient has indicated understanding and acceptance of the risks and procedures discussed. Conscious Sedation: Patient's ECG, heart rate, blood pressure, pulse oximetry was monitored throughout the duration of procedure under the direct supervision. [1] mg Versed and [50] mg Fentanyl were used for induction of moderate conscious sedation. Total duration of 26 minutes. PROCEDURE:After the risks, benefits and alternatives of the above mentioned procedure explained in detail with the patient, informed consent was obtained. Patient was taken to the catheterization lab and prepped and draped in usual sterile fashion. 1% lidocaine was infiltrated over the right radial artery. A 6-Greek sheath was placed in the right radial artery using modified Seldinger technique. The sheath was flushed 5 mg verapamil was administered intra- arterially. J tipped wire was advanced under fluoroscopic guidance. Once the wire tip reached aortic root [5000] units of IV heparin was given. Over the wire JL3.5 diagnostic catheter was advanced. Wire was removed, catheter was flushed and manipulated under fluoroscopy to selectively engaged the left coronary ostium. Left coronary angioplasty was performed in different angiographic projections. This catheter was exchanged for a JR4 diagnostic catheter over the wire. The catheter was flushed and manipulated to cross the aortic valve. LV pressures were obtained. Pullback was performed across aortic valve and catheter was manipulated to selectively engage the right coronary ostium under fluoroscopic guidance. Right coronary angiography was performed in different angiographic projections. Catheter was removed over the wire. Radial sheath was flushed. The right radial sheath was was flushed and 5 mg of verapamil was administered. The sheath was secured via small suture. HEMODYNAMICS: Aortic Pressure: 186/76 mmHg. LV pressure: 195/8 mmHg. LVEDP 18 mmHg. SELECTIVE CORONARY ARTERIOGRAPHY: LEFT MAIN: The left main is a large caliber vessel which bifurcates into the LAD and circumflex. There is no significant stenosis. LEFT ANTERIOR DESCENDING CORONARY ARTERY: LAD is a large caliber vessel which wraps around to the apex. Proximal LAD is patent. Mid LAD has mild luminal irregularities. Distal LAD just after second diagonal artery shows a jugular calcific disease with 80% stenosis. This is the culprit based of patient's nuclear stress test. Diagonal 1 is a small caliber vessel. Diagonal 2 is medium-sized 2 mm vessel which appears angiographic normal. Diagonal 3 is a small caliber vessel with disease bifurcating from LAD just at the site of of 80% stenosis. LEFT CIRCUMFLEX CORONARY ARTERY: It is nondominant vessel. Left circumflex is a moderate caliber vessel without significant stenosis. It gives a small OM1 branch which is angiography normal. It gives large OM 2 branch which is a 3 mm vessel appearing angiographically normal RIGHT CORONARY ARTERY: Dominant vessel. The right coronary artery is a large caliber vessel which gives off a PDA and PLV branch. It appears angiographically normal. IMPRESSION: 80% calcific stenosis of distal LAD. No significant CAD and other coronary vessels. Normal left sided filling pressures This is culprit lesion based of positive nuclear stress test. Patient's risk factors include prior left-sided chest radiation for breast cancer PLAN: Plan for cardiac intervention with PCI. Next Case discussed with clothing and textiles teacher Family and patient updated about the plan and they agree. Performing Physician Blake Pretty MD
[2022-12-15] MEDS ORDERED: IV FLUID CONTINUATION 1,000 ML IV ONE (13:14)
[2022-12-15] MEDS ORDERED: HEPARIN SODIUM 1,000 UN/ML (10ML VL) ONE (13:28)
[2022-12-15] MEDS ORDERED: CLOPIDOGREL 75 MG TAB ONE (13:36)
[2022-12-15] MEDS: fentaNYL (PF) 50 MCG/1 ML VIAL IVP ONE ×2 (13:38→13:59)
[2022-12-15] MEDS ORDERED: CLOPIDOGREL 75 MG TAB PO ONE (13:41)
[2022-12-15] MEDS: VERAPAMIL SYRINGE (5 MG/10 ML) INTRAARTER ONE ×2 (13:42→13:47)
[2022-12-15] MEDS: MIDAZOLAM 2 MG/2 ML VIAL IVP ONE ×2 (13:52→13:53)
[2022-12-15] MEDS: HEPARIN SODIUM 1,000 UN/ML (10ML VL) IV ONE ×2 (14:03→14:27)
[2022-12-15] MEDS ORDERED: MAG HYDROX/AL HYDROX/SIMETH 30 ML CUP PO PRN (14:34)
[2022-12-15] MEDS ORDERED: NITROGLYCERIN SL TABS 0.4 MG TAB SUBLINGUAL PRN (14:34)
[2022-12-15] MEDS ORDERED: ATROPINE SULFATE 0.1 MG/ML 10ML SYRINGE IV PRN (14:34)
[2022-12-15] MEDS ORDERED: RX INFO: IV CONTRAST WAS GIVEN 1 EACH MISC MISCELLANE PRN (14:34)
[2022-12-15] MEDS ORDERED: ZOLPIDEM 5 MG TAB PO PRN (14:34)
[2022-12-15] MEDS ORDERED: DICYCLOMINE 10 MG CAP PO PRN (14:35)
--- NOTE | 2022-12-15 14:41 | P.CARDCATH ---
Date of Procedure: 12/15/22 Description of Procedure: PERCUTANEOUS TRANSLUMINAL CORONARY ANGIOPLASTY CLINICAL INFORMATION: The patient is a 72-year-old female with symptoms of chest discomfort and abnormal MPI. She has a history of hypertension and hyperlipidemia . She underwent cardiac catheterization by Dr. Pretty and was found to have significant obstructive disease in the mid LAD. Recommendations were made regarding angioplasty and stenting. The procedure as well as the risks and the complications were discussed with the patient who was in full understanding and agreement. PROCEDURE: The patient was brought to the labeling strategist in the fasting and semi- sedated state after receiving fentanyl and Benadryl, using guidewire exchange technique 6-Comoran sheath was exchanged to a new 6-Comoran sheath in the right radial artery. A 6 [place] FL3.5 guiding catheter was introduced into the system. Attempt to advance an EBU 3.75 were unsuccessful because of severe spasm and the radial artery spite of intra-arterial verapamil. After cannulating the left main, a 0.014 BMW J-wire was advanced across the lesion and positioned distally. Following that a 2.25 x 12 mm NC Treck balloon was advanced and inflated at 8 atmosphere. After removing the balloon a [employer] intravascular ultrasound catheter was introduced and images were obtained. Following that a 2.75 x 23 mm Xience brunilda point stent was deployed. It was dilated at 16. After the last inflation, after appropriate wait, the balloon and the guidewire were withdrawn back into the guiding catheter. Images were obtained and repeated. Those images reveal stable successful stenting. At that point, the guiding catheter, the balloon, and guidewire were removed. The sh eath was removed. Hemostasis was obtained with deployment of a TR band. There were no immediate complications. The patient was returned to the room in stable condition. Of note, the patient received 6500 units of heparin as well as Plavix. His ACT was followed. There was no immediate complications. She had EKG changes but no chest discomfort. The EKG changes resolved at the end of the procedure. RESULTS: Successful stenting of the mid LAD with reduction of stenosis from 80 % to 0 % with intravascular ultrasound imaging. RECOMMENDATIONS: The patient will continue on aspirin and clopidogrel for 6 months in addition to aggressive coronary risks modifications. The findings and recommendations were discussed with the patient and the family, they are in full understanding and agreement. Duration of sedation: 44 minutes
[2022-12-15] MEDS ORDERED: LOSARTAN 50 MG TAB PO SCH (14:45)
[2022-12-15] MEDS ORDERED: SODIUM CHLORIDE 0.9% 1,000 ML in EMPTY BAG 1 BAG IV SCH (14:45)
[2022-12-15] MEDS ORDERED: ACETAMINOPHEN TAB 500 MG TAB PO ONE (15:41)
[2022-12-15] MEDS ORDERED: ACETAMINOPHEN TAB 500 MG TAB PO PRN (17:11)
[2022-12-15] MEDS ORDERED: LIDOCAINE 5% PATCH TOPICAL ONE (17:15)
[2022-12-16 04:00] LABS: African American GFR (CKD) >90 (>60 ml/min/1.73 sqM); Anion Gap 6 mmol/L; Blood Urea Nitrogen 14 mg/dL (7-17); Calcium 8.2 mg/dL (8.4-10.2); Carbon Dioxide 23 mmol/L (22-30); Chloride 107 mmol/L (98-107); Glucose 91 mg/dL (74-99); Non-African American GFR(CKD) >90 (>60 ml/min/1.73 sqM); Potassium 3.4 mmol/L (3.5-5.1); Sodium 136 mmol/L (137-145)
[2022-12-16 07:51] VITALS: BP 120/71; PULSE 62; RESP 16; TEMP 98.1
[2022-12-16] MEDS ORDERED: CLOPIDOGREL 75 MG TAB PO SCH (09:00)
[2022-12-16] MEDS ORDERED: ATORVASTATIN 40 MG TAB PO SCH (09:00)
[2022-12-16] MEDS ORDERED: LEVOTHYROXINE 75 MCG TAB PO SCH (09:00)
[2022-12-16] MEDS ORDERED: ASPIRIN 81 MG PO SCH (09:00)
[2022-12-16] MEDS ORDERED: METOPROLOL SUCCINATE (ER) 25 MG TAB.ER.24H PO SCH (09:00)
[2022-12-16] MEDS: SODIUM CHLORIDE 0.9% 1,000 ML in EMPTY BAG 1 BAG IV SCH (09:39)
[2022-12-16] MEDS: LOSARTAN 25 MG TAB PO SCH ×2 (09:40→09:43)
--- NOTE | 2022-12-16 12:59 | P.PN ---
Subjective Progress Note Date: 12/16/22 SUBJECTIVE: Patient underwent an outpatient left heart catheterization yesterday. She was found to have 80% distal LAD stenosis for which she got PCI done. Post PCI she has been doing well. Last night she was complaining of some pain in her right forearm which got better with lidocaine patch. This morning she denies having any chest pain chest pressure shortness of breath or right thumb pain. She is hemodynamically stable. Vitals: Hemodynamics stable Labs: Hemoglobin, creatinine are within normal limits. Cardiac meds: Aspirin, Plavix, atorvastatin, metoprolol, losartan PHYSICAL EXAMINATION Vital signs reviewed. Head: Normocephalic. Eyes: Sclerae nonicteric. Neck: Brisk carotid upstroke, no jugular venous distention. Lungs: Clear to auscultation. Heart: Regular rate and rhythm, S1-S2, no S3, no murmur or rub. Right radial exercise appears intact with no signs of bleeding or hematoma or pseudoaneurysms Abdomen: Soft nontender, positive bowel sounds no organomegaly. Extremities: No edema, intact distal pulses. ASSESSMENT Status post PCI to distal LAD with drug-eluting stent Coronary artery disease Essential hypertension PLAN Start aspirin and Plavix. Patient was educated about 1 antiplatelet therapy and risk of bleeding and importance of continuing gait uninterruptedly for next 12 years Continue atorvastatin. Start metoprolol 25 mg daily Reduce losartan to 25 mg daily Follow-up with me in clinic within next 1-2 weeks Okay to be discharged Objective - Vital Signs Vital signs: Vital Signs Temp 98.1 F 12/16/22 07:00 Pulse 62 12/16/22 07:00 Resp 16 12/16/22 07:00 BP 120/71 12/16/22 07:00 Pulse Ox 98 12/16/22 07:00 FiO2 Intake & Output 12/15/22 12/16/22 12/16/22 18:59 06:59 18:59 Intake Total 700 Balance 700 Weight 81.8 kg Intake: IV 700 Other: # Voids 2 1 - Labs CBC & Chem 7: 12/16/22 03:31 Labs: Abnormal Lab Results - Last 24 Hours (Table) 12/16/22 Range/Units 03:31 Sodium 136 L (137-145) mmol/L Potassium 3.4 L (3.5-5.1) mmol/L Calcium 8.2 L (8.4-10.2) mg/dL
== END 2022-12-16 10:40 ==
LOC: CATHCVL 08:08 → 6NMEDSUR 14:23 → CATHCVL 12-16 10:40
PROVIDERS: ATTEND Student in an Organized Health Care Education/Training Program
DX: I20.0 Unstable angina (principal); I10 Essential (primary) hypertension; E78.5 Hyperlipidemia, unspecified; I25.2 Old myocardial infarction; F17.210 Nicotine dependence, cigarettes, uncomplicated; Z79.82 Long term (current) use of aspirin; Z79.899 Other long term (current) drug therapy
CPT/HCPCS: 92978; 93458; 80048; C9600; C1769 ×4; C1887 ×2; C1894 ×2; C1753; C1874; C1725; J2250; J2001; J3010 ×2; J1644; Q9967

== ENCOUNTER → 2023-06-30 | Outpatient (CLI) | payer MEDICARE, OTHER ==
[2023-06-30 12:17] VITALS: BP 151/85; PULSE 62; RESP 16; TEMP 97.7
--- NOTE | 2023-06-30 12:41 | P.SLEEP ---
History of Present Illness DATE: 06/30/2023 CONSULTATION/NEW PATIENT EVALUATION HISTORY OF PRESENT ILLNESS/SLEEP-WAKE EVALUATION: 72-year-old lady had been ev aluated in the sleep center for possible obstructive sleep apnea hypopnea syndrome. Patient has history of obstructive sleep apnea diagnosed about 30 years ago, but treatment with CPAP at the time was not successful, patient was not able to use CPAP equipment. SLEEP SCHEDULE: Usually sleep schedule from 1112 until 78 AM. FALLING ASLEEP: Sometimes patient has difficulties with falling asleep, has TV set in bedroom. DURING SLEEP: Patient usually sleeps on the back and side position with snoring and multiple awakenings from sleep up to 10 times with 1 episode of using restroom. Positive history of choking, panic attacks, palpitations, gasping for air no history of hypnogogical hallucinations, sleep paralysis, or cataplexy. DURING THE DAY/WAKE STATE: In the morning patient wake up tired, has difficulties to pay attention, falling asleep during the day. [place] sleepiness scale is increased to 12. Sometimes take 1 nap during the day. PAST MEDICAL HISTORY: Coronary artery disease, hypertension, hypothyroidism, hyperlipidemia, breast cancer. PAST SURGICAL HISTORY: Partial hysterectomy, double mastectomy, bladder suspension, appendectomy. MEDICATIONS: See below. FAMILY HISTORY: Hypertension, stroke, sleep apnea, diabetes. REVIEW OF SYSTEMS: Snoring, multiple awakenings from sleep, sleepiness during the day. No fevers. No double vision. No recent chest pain. No shortness of breath. No abdominal pain. No bleeding episodes. No blood in urine. No seizure episodes. PHYSICAL EXAMINATION: GENERAL: A pleasant patient without any distress. VITAL SIGNS: See below HEENT: PERRLA, EOMI. Evaluation of oropharynx showed tongue protrudes midline, low position of soft palate Mallampati 4. NECK: Supple. No JVD. Thyroid is not palpable. 14.5 inches in circumference. LUNGS: Clear to percussion and to auscultation. Good air exchange. No wheezing or rhonchi. HEART: S1, S2 regular. No murmurs, gallops or rubs. ABDOMEN: Soft and nontender. Bowel sounds are present. No organomegaly appreciated. EXTREMITIES: No clubbing or cyanosis. TIRE LAYER: Awake, alert, and oriented x3. Cranial nerves 2 to 7 intact. There is no fasciculation or atrophy noted. No focal deficits observed. ASSESSMENT: 1. Snoring, multiple awakenings from sleep, extremely low position of soft palate Mallampati 4, history of obstructive sleep apnea in the past, sleepiness with [place] Sleepiness Scale 12. Obstructive sleep apnea hypopnea syndrome. 2. Mild obesity, BMI 31.0. 3. Hypertension. 4. Coronary artery disease, status post stent insertion. 5 history of breast see, status post double mastectomy. 6 . Hyperlipidemia. 7. Hypothyroidism. 8. Status post partial hysterectomy. 9 . Status post bladder suspension. PLAN: 1. Home sleep apnea test Polysomnography for evaluation of patient's breathing during sleep. 2. Following plan after reading sleep study. 3. Preferable position during sleep on the side. 4. No driving if patient feels any sleepiness. Patient is aware of civil and criminal liability for unsafe driving. 5. Sleep hygiene with regular sleep time for at least 7.5-8 hours. 6. Watching weight. Thank you very much for referring this patient for consultation. Sincerely, Navi Allen MD, PhD, FAASM. Diplomat of [place] [employer], Sleep Medicine Board by [place] [employer] [employer] Help Desk Operator of [facility] [place] Past Medical History Past Medical History: Asthma, Cancer, Chest Pain / Angina, Hyperlipidemia, Hypertension, Osteoarthritis (OA), Sleep Apnea/CPAP/BIPAP, Thyroid Disorder Additional Past Medical History / Comment(s): STRESS INDUCED ASTHMA, C-PAP-DOES NOT USE, LOW THYROID, LEFT BREAST CANCER (LUMPECTOMY,CHEMO & RADIATION 1997), RIGHT BREAST CANCER (2006 WITH DOUBLE MASTECTOMY), HAD MULTIPLE BREAST SURGERIES WITH COMPLICATIONS WITH HYPERBARIC OXYGEN CHAMBER FOR BREAST WOUND THAT BURST HER EAR DRUMS, HX OF BROKEN LEFT SHOULDER & CLAVICLE, HAS SHOULDER PAIN., BACK PAIN. , IRREGULAR BOWEL MOVEMENTS. 1 month ago had sharp chest pains. abnormal echo with Dr Pretty. History of Any Multi-Drug Resistant Organisms: None Reported Past Surgical History: Appendectomy, Bladder Surgery, Breast Surgery, Cholecystectomy, Heart Catheterization, Hernia Repair, Hysterectomy Additional Past Surgical History / Comment(s): HERNIA REPAIR (2008,2011) LEFT OVARY & APPY(1982), TUBAL LIGATION (1988), PARTIAL HYST & BLADDER SUSPENSION (2002), LEFT BREAST LUMP (1997), CARDIAC CATH (2004), DOUBLE MASTECTOMY(2006), LATISSIMUS FLAP LEFT BREAST , SPORTS COMPLEX ATTENDANT REMOVED AND REINSERTED AND REMOVED AGAIN. , DEBRIDMENT LEFT BREAST W/WOUND VAC (01/2008), EAR TUBES (2008) ADN EAR TUBE REMOVED, CLOSURE OF BREAST WOUND AND REMOVAL OF 2 SEROMAS (APR 2008). Past Anesthesia/Blood Transfusion Reactions: Postoperative Nausea & Vomiting (PONV) Past Psychological History: No Psychological Hx Reported Smoking Status: Former smoker Past Alcohol Use History: None Reported Additional Past Alcohol Use History / Comment(s): SMOKED FOR 2 YEARS ,1-2 CIGARETTES PER DAY. QUIT SMOKING 1979. Past Drug Use History: None Reported - Past Family History Mother Family Medical History: CVA/TIA, Thyroid Disorder Daughter(s) Family Medical History: Deep Vein Thrombosis (DVT) Son(s) Family Medical History: Deep Vein Thrombosis (DVT) Medications and Allergies Home Medications Medication Instructions Recorded Confirmed Type Levothyroxine Sodium [Synthroid] 75 mcg PO DAILY 02/10/16 06/30/23 History Acetaminophen [Tylenol Extra 1 tab PO DIRECTED PRN 12/09/22 06/30/23 History Strength] Biotin [Jesu-Lobq-Cqvgv] 10,000 mcg PO DAILY 12/09/22 12/09/22 History Dicyclomine [Bentyl] 10 mg PO TID PRN 12/09/22 06/30/23 History Unk Multi Vitamin 1 tab PO DAILY 12/09/22 12/09/22 History Aspirin 81 mg PO DAILY #90 tab 12/16/22 06/30/23 Rx Atorvastatin [Lipitor] 40 mg PO DAILY #90 tab 12/16/22 06/30/23 Rx Clopidogrel [Plavix] 75 mg PO DAILY #90 tab 12/16/22 06/30/23 Rx Losartan [Cozaar] 25 mg PO DAILY #90 tab 12/16/22 06/30/23 Rx Metoprolol Succinate (ER) [Toprol 25 mg PO DAILY #90 tab 12/16/22 06/30/23 Rx XL] Ascorbic Acid [Vitamin C] 06/30/23 History Cholecalciferol (Vitamin D3) 06/30/23 History [Vitamin D3 (125 MCG = 5,000 IU)] Montelukast [Singulair] 06/30/23 History Allergies Allergy/AdvReac Type Severity Reaction Status Date / Time clarithromycin [From Biaxin] Allergy Unknown Nausea, Verified 12/15/22 08:25 Abdominal pain hydromorphone [From Dilaudid] Allergy Unknown Nausea, Verified 12/15/22 08:25 Abdominal pain adhesive tape AdvReac Unknown Skin Tears. Verified 12/15/22 08:25 Physical Exam Vitals: Vital Signs Temp Pulse Resp BP Pulse Ox 06/30/23 12:15 97.7 F 62 16 151/85 97 Intake and Output 06/29/23 06/30/23 06/30/23 22:59 06:59 14:59 Other: Weight 83.461 kg Sleep Note - Sleep Data ESS Total: 12 - Sleep Note Sleep Note: Temperature: 97.7 F Pulse Rate: 62 Respiratory Rate: 16 Blood Pressure: 151/85 SpO2: 97 Height: 5 ft 4.5 in Weight: 83.461 kg BMI: Neck Circumference: 14.5
== END ==
LOC: 3 N SLEEP 11:27
PROVIDERS: ATTEND Internal Medicine
DX: G47.33 Obstructive sleep apnea (adult) (pediatric) (principal); E66.9 Obesity, unspecified; I10 Essential (primary) hypertension; I25.10 Atherosclerotic heart disease of native coronary artery without angina pectoris; E78.5 Hyperlipidemia, unspecified; E03.9 Hypothyroidism, unspecified; Z90.710 Acquired absence of both cervix and uterus; Z98.890 Other specified postprocedural states; Z90.13 Acquired absence of bilateral breasts and nipples; Z85.3 Personal history of malignant neoplasm of breast; Z68.31 Body mass index [BMI] 31.0-31.9, adult; Z88.1 Allergy status to other antibiotic agents; Z88.5 Allergy status to narcotic agent; Z91.048 Other nonmedicinal substance allergy status; Z79.02 Long term (current) use of antithrombotics/antiplatelets; Z79.82 Long term (current) use of aspirin; Z79.899 Other long term (current) drug therapy; Z87.891 Personal history of nicotine dependence
CPT/HCPCS: 99211

== ENCOUNTER 2023-07-25 19:46 | Outpatient (CLI) | payer MEDICARE, OTHER ==
--- NOTE | 2023-07-27 11:18 | P.PCN ---
Description of Procedure: POLYSOMNOGRAPHY REPORT PROCEDURE(S)/DATE(S): Polysomnography 07/25/2023 CLINICAL: Patient has been seen in the sleep center for evaluation of obstructive sleep apnea-hypopnea syndrome. Please see my consultation. Sleep study has been done for evaluation of patient breathing during the sleep. PROCEDURE: The standard montage for clinical polysomnography included the electroencephalogram, the electrooculogram, the mentalis surface electromyography and Lead II cardiography. The respiratory battery consisted of measurements of nasal/buccal air flow, pressure transducer measurements from nose, thoracic and/or abdominal effort and intercostal surface electromyography. Video monitoring has been done to check for any parasomnia events. Nocturnal oxyhemoglobin saturations were obtained by finger oximetry. Step-davidson titration with positive airway pressure was utilized to control the respiratory events, if necessary. RESULTS: During the diagnostic sleep study sleep efficiency was normal 87.1%. Latency to sleep onset was normal at 12.5 min. Sleep architecture showed stage NI increased to 17.3%, Delta sleep was practically absent 0.8%, REM sleep was decreased to 15.6%. Respiratory channel showed 0 obstructive apneas, 0 mixed apneas, 0 central apneas, 138 hypopneas with lowest oxygen level 78%. Total apnea hypopnea index was 22.1. Heart rate was in the range between 51 and 58, average 54. EMG showed 0 periodic limb movements per hour . IMPRESSIONS: 1. Moderate obstructive sleep apnea hypopnea syndrome. 2. No significant periodic limb movements have been documented. Please see other impressions from consultation PLAN: 1. The patient will have PAP titration for correction of respiratory abnormalities during the sleep. 2. Losing weight program. 3. Sleep hygiene with regular time in bed for at least 7-1/2 hours. 4. No driving if feeling sleepiness. Thank you very much for allowing me to participate in the management of your patient. Sincerely, Navi Allen MD, PhD, FAASM. Diplomat of [place] [employer] Medicine, Sleep Medicine Board by [place] [employer] Internal Medicine [employer] of [facility] [place]
== END 2023-07-26 06:05 | disposition home or self-care (01) ==
LOC: 3 N SLEEP 19:46
PROVIDERS: ATTEND Internal Medicine
DX: G47.33 Obstructive sleep apnea (adult) (pediatric) (principal); Z88.1 Allergy status to other antibiotic agents; Z88.5 Allergy status to narcotic agent; Z91.048 Other nonmedicinal substance allergy status; Z87.891 Personal history of nicotine dependence
CPT/HCPCS: 95810

== ENCOUNTER 2023-10-03 19:50 | Outpatient (CLI) | payer MEDICARE, OTHER ==
--- NOTE | 2023-10-05 14:04 | P.PCN ---
Description of Procedure: CLINICAL: Titration with positive air pressure has been done for correction of respiratory abnormalities during sleep. DESCRIPTION OF PROCEDURE: The standard montage for clinical polysomnography included the electroencephalogram, the electrocardiogram, the mentalis surface electromyography and Lead II cardiography. The respiratory battery consisted of measurements of nasal /buccal air flow, pressure transducer measurements from the nose, thoracic and /or abdominal effort and intercostal surface electromyography. Video monitoring has been done to check for any parasomnia events. Nocturnal oxyhemoglobin saturations were obtained by finger oximetry. Step-davidson titration with positive airway pressure was utilized to control respiratory events. Raw data of sleep recording has been reviewed and is adequate. RESULTS: Sleep efficiency was decreased to 70.1%. Latency to sleep onset was prolonged to 42.0 minutes.]. Sleep architecture showed stage N1 was normal 6.0%, Delta sleep was normal 6.0%, REM sleep was slightly decreased to 12.0%. Heart rate was minimum 48 BPM, maximum 54 BPM, average 50 BPM. EMG showed 2.7 periodic limb movements per hour with 0 micriarousals per hour. PAP titration have been done with CPAP up to the pressure 8 cm H2O. The best results were at the pressure 8 cm H2O. Apnea hypopnea index reduced to 0.7. IMPRESSION: 1. Obstructive sleep apnea hypopnea syndrome on controle with PAP treatment. 2. No significant periodic limb movements have been documented. Please see other impressions from consultation. PLAN: 1. The patient will have treatment with positive air pressure equipment with the level of pressure AutoPAP 5-8 cm H2O and should use it every night for the whole night. 2. Watching weight. 3. Sleep hygiene with regular time in bed for at least 8 hours. 4. No driving if feeling any sleepiness. 5. I will see the patient for follow up visit to explain the results of the test, recommendations, check compliance with treatment and make any necessary adjustment related to mask fitting, pressure and humidification. Thank you very much for allowing me to participate in the management of your patient. Sincerely, Navi Allen MD, PhD, FAASM Diplomat of [place] [employer] Special[employer] Sleep Medicine Board of [place] Board of Internal Medicine Water Supply Technician of [facility] [place]
== END 2023-10-04 05:55 | disposition home or self-care (01) ==
LOC: 3 N SLEEP 19:50
PROVIDERS: ATTEND Internal Medicine
DX: G47.33 Obstructive sleep apnea (adult) (pediatric) (principal); Z88.5 Allergy status to narcotic agent; Z88.1 Allergy status to other antibiotic agents; Z91.048 Other nonmedicinal substance allergy status; Z87.891 Personal history of nicotine dependence
CPT/HCPCS: 95811

== ENCOUNTER 2023-10-11 17:11 | Emergency (ER) | payer MEDICARE, OTHER ==
[2023-10-11 17:17] VITALS: TEMP 97.9
--- NOTE | 2023-10-11 17:33 | ED ---
Fall HPI - General Chief Complaint: Fall Stated Complaint: fall, chest pain, blood thinners Time Seen by Provider: 10/11/23 17:27 Source: patient, RN notes reviewed, old records reviewed Mode of arrival: wheelchair Limitations: no limitations - History of Present Illness Initial Comments: This is a 72-year-old female to the ER after a fall. Patient fall off of from a mobile home patient states few weeks fell out of the car resulting in significant shoulder pain and back pain and chest pain. MD Complaint: fall -: days(s) Fall From: standing When Fall Occurred: 1 hour CLAIM TAKER Fall Witnessed: no Place Fall Occurred: home Loss of Consciousness: none Prolonged Down Time?: no Location: chest Location - Extremities: Right: Shoulder, Arm, Elbow - Related Data Home Medications Medication Instructions Recorded Confirmed Levothyroxine Sodium [Synthroid] 75 mcg PO DAILY 02/10/16 06/30/23 Acetaminophen [Tylenol Extra 1 tab PO DIRECTED PRN 12/09/22 06/30/23 Strength] Biotin [Pcvx-Ueab-Vbild] 10,000 mcg PO DAILY 12/09/22 12/09/22 Dicyclomine [Bentyl] 10 mg PO TID PRN 12/09/22 06/30/23 Unk Multi Vitamin 1 tab PO DAILY 12/09/22 12/09/22 Ascorbic Acid [Vitamin C] 06/30/23 Cholecalciferol (Vitamin D3) 06/30/23 [Vitamin D3 (125 MCG = 5,000 IU)] Montelukast [Singulair] 06/30/23 Previous Rx's Medication Instructions Recorded Aspirin 81 mg PO DAILY #90 tab 12/16/22 Atorvastatin [Lipitor] 40 mg PO DAILY #90 tab 12/16/22 Clopidogrel [Plavix] 75 mg PO DAILY #90 tab 12/16/22 Losartan [Cozaar] 25 mg PO DAILY #90 tab 12/16/22 Metoprolol Succinate (ER) [Toprol 25 mg PO DAILY #90 tab 12/16/22 XL] Allergies Allergy/AdvReac Type Severity Reaction Status Date / Time clarithromycin [From Biaxin] Allergy Unknown Nausea, Verified 10/11/23 17:17 Abdominal pain hydromorphone [From Dilaudid] Allergy Unknown Nausea, Verified 10/11/23 17:17 Abdominal pain adhesive tape AdvReac Unknown Skin Tears. Verified 10/11/23 17:17 Review of Systems ROS Statement: Those systems with pertinent positive or pertinent negative responses have been documented in the HPI. ROS Other: All systems not noted in ROS Statement are negative. Past Medical History Past Medical History: Asthma, Cancer, Chest Pain / Angina, Hyperlipidemia, Hypertension, Osteoarthritis (OA), Sleep Apnea/CPAP/BIPAP, Thyroid Disorder Additional Past Medical History / Comment(s): STRESS INDUCED ASTHMA, C-PAP-DOES NOT USE, LOW THYROID, LEFT BREAST CANCER (LUMPECTOMY,CHEMO & RADIATION 1997), RIGHT BREAST CANCER (2006 WITH DOUBLE MASTECTOMY), HAD MULTIPLE BREAST SURGERIES WITH COMPLICATIONS WITH HYPERBARIC OXYGEN CHAMBER FOR BREAST WOUND THAT BURST HER EAR DRUMS, HX OF BROKEN LEFT SHOULDER & CLAVICLE, HAS SHOULDER PAIN., BACK PAIN. , IRREGULAR BOWEL MOVEMENTS. 1 month ago had sharp chest pains. abnormal echo with Dr Pretty. History of Any Multi-Drug Resistant Organisms: None Reported Past Surgical History: Appendectomy, Bladder Surgery, Breast Surgery, Cholecystectomy, Heart Catheterization, Hernia Repair, Hysterectomy Additional Past Surgical History / Comment(s): HERNIA REPAIR (2008,2011) LEFT OVARY & APPY(1982), TUBAL LIGATION (1988), PARTIAL HYST & BLADDER SUSPENSION (2002), LEFT BREAST LUMP (1997), CARDIAC CATH (2004), DOUBLE MASTECTOMY(2006), LATISSIMUS FLAP LEFT BREAST , SOFTBALL PLAYER REMOVED AND REINSERTED AND REMOVED AGAIN. , DEBRIDMENT LEFT BREAST W/WOUND VAC (01/2008), EAR TUBES (2008) ADN EAR TUBE REMOVED, CLOSURE OF BREAST WOUND AND REMOVAL OF 2 SEROMAS (APR 2008). Past Anesthesia/Blood Transfusion Reactions: Postoperative Nausea & Vomiting (PONV) Past Psychological History: No Psychological Hx Reported Smoking Status: Former smoker Past Alcohol Use History: None Reported Past Drug Use History: None Reported - Past Family History Mother Family Medical History: CVA/TIA, Thyroid Disorder Daughter(s) Family Medical History: Deep Vein Thrombosis (DVT) Son(s) Family Medical History: Deep Vein Thrombosis (DVT) General Exam Limitations: no limitations General appearance: alert, in no apparent distress Head exam: Present: atraumatic, normocephalic, normal inspection Eye exam: Present: normal appearance, PERRL, EOMI. Absent: scleral icterus, conjunctival injection, periorbital swelling ENT exam: Present: normal exam, mucous membranes moist Neck exam: Present: normal inspection. Absent: tenderness, meningismus, lymphadenopathy Respiratory exam: Present: normal lung sounds bilaterally. Absent: respiratory distress, wheezes, rales, rhonchi, stridor Cardiovascular Exam: Present: regular rate, normal rhythm, normal heart sounds. Absent: systolic murmur, diastolic murmur, rubs, gallop, clicks GI/Abdominal exam: Present: soft, normal bowel sounds. Absent: distended, tenderness, guarding, rebound, rigid Extremities exam: Present: normal inspection, full ROM, normal capillary refill. Absent: tenderness, pedal edema, joint swelling, calf tenderness Back exam: Present: normal inspection Neurological exam: Present: alert, oriented X3, CN II-XII intact Psychiatric exam: Present: normal affect, normal mood Skin exam: Present: warm, dry, intact, normal color. Absent: rash Course Vital Signs 10/11/23 10/11/23 10/11/23 17:14 19:35 20:00 Temperature 97.9 F Pulse Rate 66 55 L 55 L Respiratory 16 16 18 Rate Blood Pressure 188/95 165/79 152/76 O2 Sat by Pulse 93 L 88 L 89 L Oximetry - Reevaluation(s) Reevaluation #1: 10/11/23 18:03 Records reviewed Reevaluation #2: 10/11/23 18:03 Patient's pain is improving Reevaluation #3: Patient informed of results and questions answered Reevaluation #4: Was pt. sent in by a medical professional or institution (, PA, RN ACUTE, urgent care, hospital, or longterm...) When possible be specific @ -no Did you speak to anyone other than the patient for history (EMS, parent, family, police, friend...)? What history was obtained from this source @ -no Did you review nursing and triage notes (agree or disagree)? Why? @ -agree Are old charts reviewed (outside hosp., previous admission, EMS record, old EKG, old radiological studies, urgent care reports/EKG's, longterm records)? Report findings @ -yes Differential Diagnosis (chest pain, altered mental status, abdominal pain women, abdominal pain men, vaginal bleeding, weakness, fever, dyspnea, syncope, headache, dizziness, GI bleed, back pain, seizure, CVA, palpatations, mental health, musculoskeletal)? @ -prior EKG interpreted by me (3pts min.). @ -no X-rays interpreted by me (1pt min.). @ -yes positive for left humerus fracture CT interpreted by me (1pt min.). @ -Negative for acute disease U/S interpreted by me (1pt. min.). @ -no What testing was considered but not performed or refused? (CT, X-rays, U/S, labs)? Why? @ -none What meds were considered but not given or refused? Why? @ -none Did you discuss the management of the patient with other professionals (professionals i.e. Dr., PA, RN ACUTE, lab, RT, psych nurse, social insurance specialist, creative writer, teacher, chief science officer, sample case porter)? Give summary @ -no Was smoking cessation discussed for >3mins.? @ -no Was critical care preformed (if so, how long)? @ -no Were there social determinants of health that impacted care today? How? (Homelessness, low income, unemployed, alcoholism, drug addiction, transportation, low edu. Level, literacy, decrease access to med. care, intermediate, rehab)? @ -none Was there de-escalation of care discussed even if they declined (Discuss DNR or withdrawal of care, Hospice)? DNR status @ -no What co-morbidities impacted this encounter? (DM, HTN, Smoking, COPD, CAD, Cancer, CVA, ARF, Chemo, Hep., AIDS, mental health diagnosis, sleep apnea, morbid obesity)? @ -none Was patient admitted / discharged? Hospital course, mention meds given and route, prescriptions, significant lab abnormalities, going to OR and other pertinent info. @ -72 female to the ER after a fall with a left humerus fracture. Fracture splinted here in the emergency department patient can be discharged home Discharge Undiagnosed new problem with uncertain prognosis? @ -no Drug Therapy requiring intensive monitoring for toxicity (Heparin, Nitro, Insulin, Cardizem)? @ -no Were any procedures done? @ -no Diagnosis/symptom? @ -Fall, left humerus fracture Acute, or Chronic, or Acute on Chronic? @ -Acute Uncomplicated (without systemic symptoms) or Complicated (systemic symptoms)? @ -Complicated Side effects of treatment? @ -no Exacerbation, Progression, or Severe Exacerbation? @ -exacerbation Poses a threat to life or bodily function? How? (Chest pain, [place], [place], pneumonia, PE, COPD, DKA, ARF, appy, cholecystitis, CVA, Diverticulitis, Homicidal, Suicidal, threat to staff... and all critical care pts) @ -yes w extremes of age Medical Decision Making - EKG Data -: EKG Interpreted by Me (EKG is sinus 67 IN 2 3060 QRS 150 QTc 463) - Radiology Data Radiology results: report reviewed (CT Brain C-spine x-ray chest right shoulder right humerus positive for right shoulder fracture), image reviewed Disposition Clinical Impression: Fall, Shoulder fracture, right, Right humeral fracture Disposition: HOME SELF-CARE Condition: Fair Instructions (If sedation given, give patient instructions): Arm Fracture in Adults (ED), Proximal Humerus Fracture (ED) Is patient prescribed a controlled substance at d/c from ED?: No Referrals: Kristina Giron MD [Primary Care Provider] - 1-2 days Anthony Brar DO [Doctor of Osteopathic Medicine] - 1-2 days Time of Disposition: 19:35
--- NOTE | 2023-10-11 18:49 | CT ---
EXAMINATION TYPE: CT brain cspine wo con DATE OF EXAM: 10/11/2023 COMPARISON: None HISTORY: trauma/fall CT DLP: 1338 mGycm, Automated exposure control for dose reduction was used. CONTRAST: None CT of the brain is performed utilizing 3 mm thick sections through the posterior fossa and 3 mm thick sections through the remaining calvarium. Study is performed within 24 hours of arrival to the hospital. No abnormal hyperdensity is present to suggest an acute intracranial hemorrhage. No mass lesion is evident. No acute infarcts are evident. Ventricles and sulci are appropriate for the patient age. There is opacification of the right maxillary sinus. Left maxillary sinus and remaining paranasal sin uses are clear. Mastoid air cells are clear. IMPRESSIONS: 1. No acute intracranial process. Follow-up MRI can be performed as clinically indicated. 2. Opacification of the right maxillary sinus. Correlate maxillary sinusitis. CT cervical spine. COMPARISON: None CT of the cervical spine is performed in the axial plane at 2 mm thick sections. Reconstructed image s in the coronal, and sagittal plane are reviewed on the computer. No acute fractures are evident. Vertebral body alignment is normal. There is loss of disc height and vacuum disc phenomenon present C5-6 C6-7. Vertebral body heights are preserved. No spinal canal stenosis is evident. No neural foraminal stenosis is evident. IMPRESSION: 1. Mild degenerative disc changes and vacuum disc phenomenon C5-6 C6-7. 2. No acute osseous abnormality cervical spine
[2023-10-11] MEDS: MORPHINE SULFATE 4 MG/ML SYRINGE IM STA (18:50)
--- NOTE | 2023-10-11 18:50 | XR ---
EXAMINATION TYPE: XR shoulder complete RT DATE OF EXAM: 10/11/2023 COMPARISON: NONE HISTORY: Pain TECHNIQUE: Shoulder examined in 3 projections. FINDINGS: The humeral head articulates with the glenoid. The acromio-clavicular junction is normal. There is a fracture through the surgical neck of the humerus. Subtle nondisplaced avulsion of the gre ater tuberosity may be present. A follow up study can be performed 7-10 days from acute trauma for continued pain. MRI can be perfor med if soft tissue evaluation would be of benefit. IMPRESSION: 1. Fracture through the surgical neck of the proximal right humerus. Greater tuberosity avulsion not excluded
--- NOTE | 2023-10-11 18:57 | XR ---
EXAMINATION TYPE: XR elbow complete RT DATE OF EXAM: 10/11/2023 COMPARISON: None HISTORY: Trauma, pain fall TECHNIQUE: 3 view right elbow FINDINGS: Radius aligns normally with the humerus. No acute fracture or dislocation is evident. Anter ior fat pad is not elevated. No elevation of the posterior fat pad is evident. There is soft tissue s welling dorsal to the distal humerus. There are follow up exams can be performed 7-10 days from acute trauma for continued pain. IMPRESSION: 1. No acute osseous abnormality right elbow. 2. Soft tissue swelling superficially distal dorsal upper extremity
--- NOTE | 2023-10-11 19:00 | XR ---
EXAMINATION TYPE: XR wrist complete RT DATE OF EXAM: 10/11/2023 COMPARISON: None HISTORY: Fall trauma pain TECHNIQUE: Risks examination 4 views FINDINGS: There is narrowing of the trapezium and trapezoid joint space with the scaphoid. Joint spac es are otherwise preserved. No acute fracture or dislocation is evident. Some soft tissue swelling is over the dorsum of the wrist. If there is pain at the anatomic site box, nuclear medicine bone scan could be performed. Follow-up e xaminations can be performed 7-10 days from acute trauma for continued pain. IMPRESSION: 1. No acute osseous abnormality radiographically apparent. 2. Mild degenerative joint changes
--- NOTE | 2023-10-11 19:02 | XR ---
EXAMINATION TYPE: XR chest 2V DATE OF EXAM: 10/11/2023 COMPARISON: 11/07/2016 INDICATION: Trauma fall, pain TECHNIQUE: Frontal and lateral views of the chest are obtained. FINDINGS: The heart size is normal. The pulmonary vasculature is normal. The lungs are clear. No pneumothorax is evident. No displaced rib fractures are identified. Patient's right humeral fracture not identified during this exam. IMPRESSION: 1. No acute pulmonary process. 2. No acute posttraumatic change is identified on this examination. The patient's known right shoulde r fracture cannot be delineated with these images.
[2023-10-11 19:37] VITALS: PULSE 55
[2023-10-11] MEDS: ACET/COD 300 MG/30 MG STARTER PACK 6 TAB BTL PO STA (19:55)
[2023-10-11] MEDS: IBUPROFEN 600 MG STARTER PACK 4 TAB BTL PO STA (19:56)
[2023-10-11 20:18] VITALS: BP 152/76; RESP 18
== END 2023-10-11 20:18 | disposition home or self-care (01) ==
LOC: EC 17:11
DX: S42.214A Unspecified nondisplaced fracture of surgical neck of right humerus, initial encounter for closed fracture (principal); Z88.5 Allergy status to narcotic agent; Z88.1 Allergy status to other antibiotic agents; Z91.09 Other allergy status, other than to drugs and biological substances; Z87.891 Personal history of nicotine dependence; W17.89XA Other fall from one level to another, initial encounter; Y92.009 Unspecified place in unspecified non-institutional (private) residence as the place of occurrence of the external cause
CPT/HCPCS: 73030; 73080; 73110; 71046; 72125; 70450; 99284; 96372; J2270

== ENCOUNTER 2024-02-19 15:03 | Emergency (ER) | payer MEDICARE, OTHER ==
[2024-02-19 15:16] VITALS: TEMP 98
--- NOTE | 2024-02-19 16:35 | ED ---
Eye Problem HPI - General Chief complaint: Eye Problems Stated complaint: L Eye Problem Time Seen by Provider: 02/19/24 15:57 Source: patient, RN notes reviewed Mode of arrival: ambulatory Limitations: no limitations - History of Present Illness Initial comments: This is a 73-year-old female who presents to the emergency department for left eye pain. States that it started about a week ago. She saw her primary care provider 6 days ago and was diagnosed with a stye. She was told to use warm compresses and wash the eye with baby shampoo. States that she has been doing this but it does not seem to be going away. She is concerned that something else may be going on. She has history of retinal detachment in the other eye and wants to make sure that is not the problem. She has noticed some mucus-like discharge from the eye. States that her vision occasionally feels blurry, however if she blinks, it goes away. MD chief complaint: eye pain - Related Data Home Medications Medication Instructions Recorded Confirmed Levothyroxine Sodium [Synthroid] 75 mcg PO DAILY 02/10/16 06/30/23 Acetaminophen [Tylenol Extra 1 tab PO DIRECTED PRN 12/09/22 06/30/23 Strength] Biotin [Ksrx-Nlog-Vczih] 10,000 mcg PO DAILY 12/09/22 12/09/22 Dicyclomine [Bentyl] 10 mg PO TID PRN 12/09/22 06/30/23 Unk Multi Vitamin 1 tab PO DAILY 12/09/22 12/09/22 Ascorbic Acid [Vitamin C] 06/30/23 Cholecalciferol (Vitamin D3) 06/30/23 [Vitamin D3 (125 MCG = 5,000 IU)] Montelukast [Singulair] 06/30/23 Previous Rx's Medication Instructions Recorded Aspirin 81 mg PO DAILY #90 tab 12/16/22 Atorvastatin [Lipitor] 40 mg PO DAILY #90 tab 12/16/22 Clopidogrel [Plavix] 75 mg PO DAILY #90 tab 12/16/22 Losartan [Cozaar] 25 mg PO DAILY #90 tab 12/16/22 Metoprolol Succinate (ER) [Toprol 25 mg PO DAILY #90 tab 12/16/22 XL] Allergies Allergy/AdvReac Type Severity Reaction Status Date / Time clarithromycin [From Biaxin] Allergy Unknown Nausea, Verified 02/19/24 15:15 Abdominal pain hydromorphone [From Dilaudid] Allergy Unknown Nausea, Verified 02/19/24 15:15 Abdominal pain adhesive tape AdvReac Unknown Skin Tears. Verified 02/19/24 15:15 Review of Systems ROS Statement: Those systems with pertinent positive or pertinent negative responses have been documented in the HPI. ROS Other: All systems not noted in ROS Statement are negative. Past Medical History Past Medical History: Asthma, Cancer, Chest Pain / Angina, Hyperlipidemia, Hypertension, Osteoarthritis (OA), Sleep Apnea/CPAP/BIPAP, Thyroid Disorder Additional Past Medical History / Comment(s): STRESS INDUCED ASTHMA, C-PAP-DOES NOT USE, LOW THYROID, LEFT BREAST CANCER (LUMPECTOMY,CHEMO & RADIATION 1997), RIGHT BREAST CANCER (2006 WITH DOUBLE MASTECTOMY), HAD MULTIPLE BREAST SURGERIES WITH COMPLICATIONS WITH HYPERBARIC OXYGEN CHAMBER FOR BREAST WOUND THAT BURST HER EAR DRUMS, HX OF BROKEN LEFT SHOULDER & CLAVICLE, HAS SHOULDER PAIN., BACK PAIN. , IRREGULAR BOWEL MOVEMENTS. 1 month ago had sharp chest pains. abnormal echo with Dr Pretty. History of Any Multi-Drug Resistant Organisms: None Reported Past Surgical History: Appendectomy, Bladder Surgery, Breast Surgery, Cholecystectomy, Heart Catheterization, Hernia Repair, Hysterectomy Additional Past Surgical History / Comment(s): HERNIA REPAIR (2008,2011) LEFT OVARY & APPY(1982), TUBAL LIGATION (1988), PARTIAL HYST & BLADDER SUSPENSION (2002), LEFT BREAST LUMP (1997), CARDIAC CATH (2004), DOUBLE MASTECTOMY(2006), LATISSIMUS FLAP LEFT BREAST , [employer]ENT REMOVED AND REINSERTED AND REMOVED AGAIN. , DEBRIDMENT LEFT BREAST W/WOUND VAC (01/2008), EAR TUBES (2008) ADN EAR TUBE REMOVED, CLOSURE OF BREAST WOUND AND REMOVAL OF 2 SEROMAS (APR 2008). Past Anesthesia/Blood Transfusion Reactions: Postoperative Nausea & Vomiting (PONV) Past Psychological History: No Psychological Hx Reported Smoking Status: Former smoker Past Alcohol Use History: Occasional Past Drug Use History: None Reported - Past Family History Mother Family Medical History: CVA/TIA, Thyroid Disorder Daughter(s) Family Medical History: Deep Vein Thrombosis (DVT) Son(s) Family Medical History: Deep Vein Thrombosis (DVT) General Exam Limitations: no limitations General appearance: alert, in no apparent distress Head exam: Present: atraumatic, normocephalic, normal inspection Eye exam: Present: PERRL, EOMI, other (External hordeolum to the left upper lid) Respiratory exam: Present: normal lung sounds bilaterally. Absent: respiratory distress, wheezes, rales, rhonchi, stridor Cardiovascular Exam: Present: regular rate, normal rhythm, normal heart sounds. Absent: systolic murmur, diastolic murmur, rubs, gallop, clicks Neurological exam: Present: alert, oriented X3, CN II-XII intact Psychiatric exam: Present: normal affect, normal mood Skin exam: Present: warm, dry, intact, normal color. Absent: rash Course Vital Signs 02/19/24 02/19/24 15:13 16:44 Temperature 98.0 F 98.0 F Pulse Rate 85 68 Respiratory 16 18 Rate Blood Pressure 102/72 121/78 O2 Sat by Pulse 96 97 Oximetry Medical Decision Making - Medical Decision Making This is a 73-year-old female who presents to the emergency department for left eye pain. Was pt. sent in by a medical professional or institution? @ -No Did you speak to anyone other than the patient for history? @ -No Did you review nursing and triage notes? @ -Yes, and I agree, it is accurate with regards to the patient's symptoms. Were old charts reviewed? @ -No Differential Diagnosis? @ -Differential Eye Pain: Conjuncitivitis (viral, bacterial, allergic), corneal abrasion, foreign body, iritis, uveitis, keratitis, acute angle closure glaucoma, this is not meant to be an all-inclusive list. EKG interpreted by me (3pts min.)? @ -Not obtained X-rays interpreted by me (1pt min.)? @ -Not obtained CT interpreted by me (1pt min.)? @ -Not obtained U/S interpreted by me (1pt. min.)? @ -Not obtained What testing was considered but not performed? (CT, X-rays, U/S, labs)? Why? @ -None What meds were considered but not given? Why? @ -None Did you discuss the management of the patient with other professionals? @ -No Did you reconcile home meds? @ -No Was smoking cessation discussed for >3mins.? @ -No Was critical care preformed (if so, how long)? @ -No Were there social determinants of health that impacted care today? How? (Homelessness, low income, unemployed, alcoholism, drug addiction, transportation, low edu. Level, literacy, decrease access to med. care, longterm, rehab)? @ -No Was there de-escalation of care discussed even if they declined? (Discuss DNR or withdrawal of care, Hospice)? @ -No What co-morbidities impacted this encounter? (DM, HTN, Smoking, COPD, CAD, Cancer, CVA, Hep., AIDS, mental health diagnosis, sleep apnea, morbid obesity)? @ -None Was patient admitted / discharged? @ -Discharged. Physical examination consistent with an external hordeolum of the left upper lid. The eyeball itself had no irregularities and she denied any pain to the eyeball itself. Due to her concern for retinal detachment, bedside ocular ultrasound was performed. No evidence of retinal detachment was identified. Vision was 20/40 bilaterally. Given that she has not had any relief with compresses and washing the eye, she was sent home with erythromycin ophthalmic ointment to be used in conjunction with warm compresses and washing the eye. Advised follow-up with her eye doctor and PCP. Patient discharged home in stable condition. Case discussed with ED attending Dr. Yoo. Return precautions reviewed in depth, the patient is instructed to return to the emergency department with any new, worsening, or concerning symptoms. Patient verbalized understanding. Undiagnosed new problem with uncertain prognosis? @ -None Drug Therapy requiring intensive monitoring for toxicity (Heparin, Nitro, Insulin, Cardizem)? @ -None Were any procedures done? @ -None Diagnosis/symptom? @ -Hordeolum of left upper lid Acute, or Chronic, or Acute on Chronic? @ -Acute Uncomplicated (without systemic symptoms) or Complicated (systemic symptoms)? @ -Uncomplicated Side effects of treatment? @ -None Exacerbation, Progression, or Severe Exacerbation] @ -Not applicable Poses a threat to life or bodily function? @ -No Disposition Clinical Impression: Hordeolum externum left upper eyelid Disposition: HOME SELF-CARE Instructions (If sedation given, give patient instructions): [facility] (ED) Additional Instructions: Return to the emergency department with any new, worsening, or concerning symptoms. Apply the erythromycin ophthalmic ointment to the left eye every 4-6 hours for 5 to 7 days. Continue to apply warm compresses and clean the eye with baby shampoo. Follow up with your primary care provider in 1-2 days. Is patient prescribed a controlled substance at d/c from ED?: No Referrals: Kristina Giron MD [Primary Care Provider] - 1-2 days Time of Disposition: 16:37
[2024-02-19] MEDS: ERYTHROMYCIN 5 MG/GM OPHTH OINT 3.5 GM TUBE LEFT EYE STA (16:41)
[2024-02-19 16:46] VITALS: BP 121/78; PULSE 68; RESP 18
== END 2024-02-19 16:51 | disposition home or self-care (01) ==
LOC: EC 15:03
CPT/HCPCS: 99283

== ENCOUNTER → 2024-10-04 | Outpatient (CLI) | payer MEDICARE, OTHER ==
--- NOTE | 2024-10-05 09:19 | MR ---
EXAMINATION TYPE: MR lumbar spine wo con DATE OF EXAM: 10/04/2024 5:59 PM COMPARISON: None. CLINICAL INDICATION: Female, 73 years old with history of M47.816 SPONDY M48.062 [place] M41.26 M43.16 M51.16, Low back pain more on the right x1 yr+, Injured fell off the side of stairs onto RT side, Hx Scoliosis, TECHNIQUE: Multi planar, multi sequence imaging was performed utilizing: T1-weighted, T2-weighted, a nd turbo inversion recovery imaging of the lumbar spine. IV Contrast: mL (None, if empty) FINDINGS: Alignment: The lumbar vertebral bodies have preserved heights and dextroscoliosis apex L1-L2 alignmen t. Cord: The conus medullaris and the distal spinal cord appear unremarkable with regards to their signa l intensity and morphology. Bones/Discs: Severe facet joint arthropathy worse in the lower spine. Scoliosis changes result in Deg eneration changes throughout the spine with osteophyte formation and facet joint arthropathy. Interve rtebral disc signal is maintained. No abnormal inversion recovery signal to suggest bony edema. T12-L1: No evidence of significant spinal canal stenosis or neural foraminal stenosis. L1-L2: No evidence of significant spinal canal stenosis or neural foraminal stenosis. L2-L3: No evidence of significant spinal canal stenosis or neural foraminal stenosis. L3-L4: Disc bulge and facet joint arthropathy result in no significant spinal canal and mild left and severe right neural foraminal stenosis. L4-L5: Disc bulge and facet joint arthropathy result in no significant spinal canal and mild left and severe right neural foraminal stenosis. L5-S1: Disc bulge and facet joint arthropathy result in no significant spinal canal and mild left and severe right neural foraminal stenosis. No significant spinal canal or neural foraminal stenosis in the remainder of the visualized levels. Other findings: Simple appearing high T2 signal right renal cyst measuring 10 mm no follow-up recomm ended. IMPRESSION: 1. No definitive evidence of disc herniation or significant spinal canal stenosis. 2. Moderate to severe scoliosis with severe facet arthropathy degeneration result in multilevel righ t severe neural foraminal stenosis from L3 through S1. [facility], , 10/05/2024 9:16 AM
== END | disposition home or self-care (01) ==
LOC: RADMRIMAIN 16:16
PROVIDERS: ATTEND Physical Medicine & Rehabilitation
DX: M47.816 Spondylosis without myelopathy or radiculopathy, lumbar region (principal); M48.062 Spinal stenosis, lumbar region with neurogenic claudication; M41.26 Other idiopathic scoliosis, lumbar region; M43.16 Spondylolisthesis, lumbar region; M51.16 Intervertebral disc disorders with radiculopathy, lumbar region; M48.061 Spinal stenosis, lumbar region without neurogenic claudication
CPT/HCPCS: 72148